=== PATIENT | male | born 2000 | race Caucasian/White ===

== ENCOUNTER 2021-07-24 19:17 | Observation (INO) | payer MEDICAID, SELFPAY ==
[2021-07-24 19:32] VITALS: BP 159/83; PULSE 128; RESP 22; TEMP 37.3; O2SAT 97; BMI 38.6
--- NOTE | 2021-07-24 20:29 | CTR_ITS ---
PROCEDURE INFORMATION: Exam: CT Abdomen And Pelvis With Contrast Exam date and time: 07/24/2021 8:29 PM Age: 21 years old Clinical indication: Abdominal pain; Localized; Right lower quadrant (rlq) TECHNIQUE: Imaging protocol: Computed tomography of the abdomen and pelvis with contrast. Radiation optimization: All CT scans at this facility use at least one of these dose optimization techniques: automated exposure control; mA and/or kV adjustment per patient size (includes targeted exams where dose is matched to clinical indication); or iterative reconstruction. Contrast material: OMNI 300; Contrast volume: 95 ml; Contrast route: INTRAVENOUS (IV); COMPARISON: No relevant prior studies available. RADIATION DOSE METRICS: Total DLP (mGy-cm): 1928.3 FINDINGS: Liver: Normal. No mass. Gallbladder and bile ducts: Normal. No calcified stones. No ductal dilation. Pancreas: Normal. No ductal dilation. Spleen: Normal. No splenomegaly. Adrenal glands: Normal. No mass. Kidneys and ureters: Normal. No hydronephrosis. Stomach and bowel: Unremarkable. No obstruction. No mucosal thickening. Appendix: Appendix dilated to 15 mm with surrounding edema consistent with acute appendicitis. Intraperitoneal space: Unremarkable. No free air. No significant fluid collection. Vasculature: Unremarkable. No abdominal aortic aneurysm. Lymph nodes: Unremarkable. No enlarged lymph nodes. Urinary bladder: Unremarkable as visualized. Reproductive: Unremarkable as visualized. Bones/joints: Unremarkable. No acute fracture. Soft tissues: Unremarkable. CT/CT abdomen pelvis w con* [id number] IMPRESSION: Acute appendicitis, negative for abscess Radiation Dose CTDIVOL = (mGy): DLP = 1928.3 (mGy-cm)
[2021-07-24 21:33] LABS: Basophils % 0.2 %; Hematocrit 49.2 % (42.0-52.0); Hemoglobin 16.8 g/dL (11.7-16.6); Lymphocytes # 1.2 10^3/uL (1.5-6.5); Lymphocytes % 5.9 %; Mean Corpuscular HGB Conc 34.1 g/dL (30.0-36.0); Mean Corpuscular Hemoglobin 30.7 pg (28.0-34.0); Mean Corpuscular Volume 89.9 fl (80-94); Mean Platelet Volume 10.6 fL (7.4-10.4); Monocytes # 1.3 10^3/uL (0.2-0.9); Monocytes % 6.5 %; Neutrophils # 17.01 10^3/uL (1.8-8.0); Nucleated Red Blood Cells % 0 %; Platelet Count 286 10^3/cmm (130-400); Red Blood Count 5.47 10^6/uL (4.1-5.3); Red Cell Distribution Width 12.7 % (12.1-15.1); White Blood Count 19.6 10^3/uL (4.5-13.0)
--- NOTE | 2021-07-24 21:37 | W.ED.ABDPA2 ---
HPI - Abdominal Pain General: Chief Complaint: Abdominal Pain Stated Complaint: ABD Pain N\V Time Seen by Provider: 07/24/21 21:25 Source: patient Mode of arrival: ambulatory Limitations: no limitations History of Present Illness: HPI narrative: 21-year-old male states been having right lower quadrant abdominal pain since last night. States it is worsened throughout the day its much worse with movement improved with rest states pain is currently 6 out of 10 he did have vomiting last night denies any vomiting today denies any pain in his testicle denies any dysuria. MD elicited complaint: abdominal pain Associated Symptoms: Denies chills, dysuria and fever(s) Review of Systems Const: Denies: fever(s), chills, body aches or change in appetite Eyes: Denies: blurry vision or eye discomfort ENMT: Denies: throat pain or dental pain Card: Denies: chest pain Resp: Denies: dyspnea GI: Reports: abdominal pain : Denies: dysuria Musc: Denies: neck pain or back pain Skin/Breast: Denies: rash Neuro: Denies: headache(s) Psych: Denies: depression Ashutosh/Lymph: Denies: easy bruising All/Imm: Denies: urticaria Physical Exam Const: COMMON NORMALS: no acute distress, patient oriented x3 and healthy appearing HENMT: COMMON NORMALS: normocephalic and atraumatic HEAD & SCALP: normocephalic and atraumatic Eye: COMMON NORMALS: Equal, round and reactive pupils present and EOMs intact bilaterally PUPIL: Yes Equal, round and reactive pupils present Neck/C-Spine: COMMON NORMALS: full ROM and supple Chest: COMMONS NORMALS: normal inspection of the chest and normal palpation of entire chest wall Resp: COMMON NORMALS: normal respiratory effort, No retractions, No use of accessory muscles and clear to auscultation bilaterally AUSCULTATION: clear to auscultation bilaterally Cardio: COMMON NORMALS: regular rate, regular rhythm and No murmurs present (Cardio) RATE: regular rate RHYTHM: regular rhythm GI: COMMON NORMALS: Normal to inspection, nondistended, normoactive bowel sounds present, Soft to palpation and no masses PALPATION: Yes Soft to palpation and Yes Tenderness to palpation present (GI) Details: RLQ Extremity: COMMON NORMALS: normal to inspection and full ROM Neuro: COMMON NORMALS: patient oriented x3, moves all extremities and no focal motor deficits Psych: COMMON NORMALS: mental status grossly normal, Normal thought process present and cooperative THOUGHT PROCESS: Normal thought process present Skin: COMMON NORMALS: no rashes or lesions noted and no wounds GENERAL SKIN EXAM: no rashes or lesions noted Course Vital Signs: Vital signs: Vital Signs Temperature 99.2 F 07/24/21 19:32 Pulse Rate 128 H 07/24/21 19:32 Respiratory Rate 22 H 07/24/21 19:32 Blood Pressure 159/83 07/24/21 19:32 Pulse Oximetry 97 07/24/21 19:32 MDM - Abdominal Pain MDM Narrative: Medical decision making narrative: Patient presents here with acute appendicitis spoke to Dr. Zapata will admit at this time start on IV antibiotics patient's pain here is controlled. Lab Data: Labs: Lab Results 07/24/21 07/24/21 21:25 21:25 WBC 19.6 10^3/uL H 10 ^3/uL (4.5-13.0) RBC 5.47 10^6/uL H 10 ^6/uL (4.1-5.3) Hgb 16.8 g/dL H g/dL (11.7-16.6) Hct 49.2 % % (42.0-52.0) MCV 89.9 fl fl (80-94) MCH 30.7 pg pg (28.0-34.0) MCHC 34.1 g/dL g/dL (30.0-36.0) RDW 12.7 % % (12.1-15.1) Plt Count 286 10^3/cmm 10^3 /cmm (130-400) MPV 10.6 fL H fL (7.4-10.4) Neut % (Auto) 87.0 % % Lymph % (Auto) 5.9 % % Crowley % (Auto) 6.5 % % Eos % (Auto) 0.0 % % Baso % (Auto) 0.2 % % Neut # (Auto) 17.01 10^3/uL H 1 0^3/uL (1.8-8.0) Lymph # (Auto) 1.2 10^3/uL L 10^ 3/uL (1.5-6.5) Crowley # (Auto) 1.3 10^3/uL H 10^ 3/uL (0.2-0.9) Eos # (Auto) 0.0 10^3/uL 10^3/ uL (0.0-0.8) Baso # (Auto) 0.0 10^3/uL 10^3/ uL (0.0-0.1) Nucleated RBC % (a uto) 0 % % Nucleated RBCs # 0.0 /100WBC /100W BC Sodium 137 mmol/L mmol/L (136-145) Potassium 3.7 mmol/L mmol/L (3.5-5.1) Chloride 99 mmol/L mmol/L (98-107) Carbon Dioxide 23 mmol/L mmol/L (22-29) Anion Gap 18.7 (5-19) BUN 7 mg/dL mg/dL (6-20) Creatinine 0.6 mg/dL L mg/dL (0.7-1.2) GFR Calculation 171.8 mL/min H mL /min (90-130) Glucose 113 mg/dL mg/dL (65-115) Calculated Osmolal ity 283 mOsm/kg L mOs m/kg (285-295) Calcium 9.3 mg/dL mg/dL (8.5-10.5) Total Bilirubin 0.8 mg/dL mg/dL (0.15-1.2) AST 11 U/L U/L (0-40) ALT 15 U/L U/L (0-41) Alkaline Phosphata se 59 IU/L IU/L (40-130) Total Protein 7.8 g/dL g/dL (6.6-8.7) Albumin 4.9 g/dL g/dL (3.5-5.2) Globulin 2.9 g/dL g/dL (1.3-4.6) Lipase 11 U/L L U/L (13-60) Imaging Data ^: CT Abd/Pel: Attestation: I personally reviewed and interpreted this imaging study as follows: Radiologist's impression: [address] [place] [address] [place] [address] CT Scan Report Signed with Teri Patient: Rickie Vasquez Unit #: [id number] : [id number] Age/Sex: 21 / M ADM Date: 07/24/21 Loc: ER Room/Bed: Attending Dr: Ordering Provider/Ordering MD: Odalys Gonsalez MD Date of Service: 07/24/21 Procedure(s): CT abdomen pelvis w con* [id number] Accession Number(s): [id number] Report Number: [id number]/CT abdomen pelvis w con* [id number] THIS REPORT CONTAINS FINDINGS THAT MAY BE CRITICAL TO PATIENT CARE. The findings were verbally communicated via telephone conference with ODALYS GONSALEZ at 10:30 PM GENERAL SERVICE OFFICER on 07/24/2021. The findings were acknowledged and understood. Radiation Dose CTDIVOL = (mGy): DLP = 1928.3 (mGy-cm) Addendum Dictated By: Patrick Tejada MD Addendum Signed By: Patrick Tejada MD Signed Date/Time: 2231 Addendum Cosigned By: PROCEDURE INFORMATION: Exam: CT Abdomen And Pelvis With Contrast Exam date and time: 07/24/2021 8:29 PM Age: 21 years old Clinical indication: Abdominal pain; Localized; Right lower quadrant (rlq) TECHNIQUE: Imaging protocol: Computed tomography of the abdomen and pelvis with contrast. Radiation optimization: All CT scans at this facility use at least one of these dose optimization techniques: automated exposure control; mA and/or kV adjustment per patient size (includes targeted exams where dose is matched to clinical indication); or iterative reconstruction. Contrast material: OMNI 300; Contrast volume: 95 ml; Contrast route: INTRAVENOUS (IV); COMPARISON: No relevant prior studies available. RADIATION DOSE METRICS: Total DLP (mGy-cm): 1928.3 FINDINGS: Liver: Normal. No mass. Gallbladder and bile ducts: Normal. No calcified stones. No ductal dilation. Pancreas: Normal. No ductal dilation. Spleen: Normal. No splenomegaly. Adrenal glands: Normal. No mass. Kidneys and ureters: Normal. No hydronephrosis. Stomach and bowel: Unremarkable. No obstruction. No mucosal thickening. Appendix: Appendix dilated to 15 mm with surrounding edema consistent with acute appendicitis. Intraperitoneal space: Unremarkable. No free air. No significant fluid collection. Vasculature: Unremarkable. No abdominal aortic aneurysm. Lymph nodes: Unremarkable. No enlarged lymph nodes. Urinary bladder: Unremarkable as visualized. Reproductive: Unremarkable as visualized. Bones/joints: Unremarkable. No acute fracture. Soft tissues: Unremarkable. CT/CT abdomen pelvis w con* [id number] IMPRESSION: Acute appendicitis, negative for abscess Radiation Dose CTDIVOL = (mGy): DLP = 1928.3 (mGy-cm) Dictated By: Patrick Tejada MD Signed By: Patrick Tejada MD Signed Date/Time: 07/24/212228 DD/ 28 Discharge Plan Discharge Patient Disposition: Admitted As Inpatient Clinical Impression: Acute appendicitis Qualifiers: Acute appendicitis type: unspecified acute appendicitis type Qualified Code(s): K35.80 - Unspecified acute appendicitis Condition: Stable Coding Level of Care Code ED Finishing Pan Operator for g Fwd Exam Comprehensive
[2021-07-24 21:47] LABS: Alanine Aminotransferase 15 U/L (0-41); Albumin Level 4.9 g/dL (3.5-5.2); Alkaline Phosphatase 59 IU/L (40-130); Anion Gap 18.7 (5-19); Aspartate Amino Transferase 11 U/L (0-40); Blood Urea Nitrogen 7 mg/dL (6-20); Calcium 9.3 mg/dL (8.5-10.5); Carbon Dioxide 23 mmol/L (22-29); Chloride 99 mmol/L (98-107); Globulin 2.9 g/dL (1.3-4.6); Glomerular Filtration Rate 171.8 mL/min (90-130); Glucose 113 mg/dL (65-115); Lipase 11 U/L (13-60); Osmolality Calculated 283 mOsm/kg (285-295); Potassium 3.7 mmol/L (3.5-5.1); Sodium 137 mmol/L (136-145); Total Bilirubin 0.8 mg/dL (0.15-1.2); Total Protein 7.8 g/dL (6.6-8.7)
[2021-07-24] MEDS: iohexol 300 mg/mL 100 mL Btl IV (21:47)
[2021-07-24] MEDS: sodium chloride 0.9% 1,000 ML 999 ML IV ×2 (22:04→22:05)
[2021-07-24] MEDS: ondansetron 2 mg/ML SDV 2 mL 4 MG IVP (22:04)
[2021-07-24] MEDS: morphine 4 mg/mL SDV 1 mL IVP (22:04)
[2021-07-25] VITALS (20 sets, daily range): BP systolic 93–145; BP diastolic 50–86; PULSE 97–134; RESP 16–32; TEMP 36.7–39.7; O2SAT 91–98; BMI 39.9
[2021-07-25] MEDS: piperacillin-tazobactam 3.375 GM in sodium chloride 0.9% (plus) 50 ML IV ×3 (00:15→20:06)
[2021-07-25] MEDS: HYDROmorphone 1 mg/mL INJ 1 mL IVP (00:16)
[2021-07-25] MEDS: sodium chloride 0.9% 1,000 ML 100 ML IV ×2 (02:43→10:31)
--- NOTE | 2021-07-25 06:24 | P.HP_ITS ---
Providers/Chief Complaint Admitting Physician: Adalid Zapata MD Chief Complaint: ABD Pain N\V History of Present Illness Rickie Vasquez is a 21 year old male who developed some vague epigastric discomfort about 36 hours ago. He says yesterday he had some nausea and vomited once. There was no evidence of hematemesis. He ran a low-grade fever at ninety-nine point something. He has not had any change in his bowel habits. He did lose his a ppetite yesterday and only had some sips of fluids. He was seen in a medical clinic in [place] and was instructed to come to the emergency department where a CAT scan showed evidence consistent with acute appendicitis. The patient says this morning the pain seems to be more localized in the right lower quadrant, but he otherwise is feeling about the same. Review of Systems General: Reports: 10 or more systems reviewed and unremarkable except in HPI and below Const: Reports: fever(s) GI: Reports: abdominal pain, nausea and vomiting; Denies: hematemesis or diarrhea Medications/Allergies Home Medications Medication Instructions Recorded Confirmed Last Taken Type lisinopril 20 mg tablet 20 mg PO DAILY 07/24/21 07/25/21 07/24/21 09:00 History Allergies Allergy/AdvReac Type Severity Reaction Status Date / Time No Known Allergies Allergy Unverified 07/24/21 17:47 PFSH Acute PFSH: Medical History (Updated 07/25/21 @ 06:41 by Adalid Zapata MD) Hypertension Surgical History (Updated 07/25/21 @ 06:41 by Adalid Zapata MD) History of oral surgery teeth Social History (Updated 07/25/21 @ 06:41 by Adalid Zapata MD) Smoking and tobacco status: never smoked Alcohol intake: never 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 He is not in any distress. The pupils are equal. No neck masses are palpated. The chest is clear anteriorly. The heart is regular. The abdomen reveals hypoactive bowel sounds and is mildly to moderately obese but is soft. Rovsing's sign is positive. The patient's maximum point of tenderness is at McBurney's point or slightly above in the right lower quadrant. No obvious masses are palpated. The extremities reveal no edema. Neurologically the patient is grossly intact. Data : 07/24/21 21:25 07/24/21 21:25 CT Abd/Pel: Radiologist's impression: CT abdomen/pelvis 07/24/2021 IMPRESSION: Acute appendicitis, negative for abscess A&P Assessment and plan (1) Acute appendicitis: CT reviewed. The patient's history and exam are consistent with acute appendicitis. I discussed appendicitis and appendectomy's with the patient (and his mother by phone) this morning. We also discussed conservative management. Surgical risks of bleeding, infection, internal organ injury, etc. were all gone over. The patient seems understand and would like to proceed with an appendectomy. The patient has been n.p.o. since yesterday. I will make arrangements for a laparoscopic or possibly open appendectomy today. Status: Acute Qualifiers: Acute appendicitis type: unspecified acute appendicitis type Qualified Code(s): K35.80 - Unspecified acute appendicitis Attestations Medical Necessity Statement*: Based on my medical assessment, presenting symptoms and consideration of the scope of surgical therapy, I expect this patient will require treatment in the hospital for a period of time spanning less than 2 midnights, and is therefore being placed in observation status. 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
[2021-07-25] MEDS: sodium chloride 0.9% 1,000 ML 30 ML IV (07:34)
[2021-07-25] MEDS: acetaminophen 1,000 MG/100 ML PIGGYBACK 400 MG IV (07:34)
[2021-07-25] MEDS: metroNIDAZOLE IV 500 MG/100 ML PREMIX 100 MG IV (07:38)
--- NOTE | 2021-07-25 09:47 | P.OP_ITS ---
Operative Report Date of procedure: July 25, 2021 Pre-op Diagnosis: Acute appendicitis. Post-op diagnosis: same Procedure Done: Laparoscopic appendectomy. Specimens removed/disposition: Appendix. Surgeon: Adalid Zapata Anesthesia: General Estimated blood loss (mL): 5 Complications: None. Condition: stable Disposition: PACU Procedure: The patient was brought to the Operating Room and was placed in a supine position on the operating room table. General endotracheal anesthesia was induced. The abdomen was prepped and draped in a sterile fashion. A small vertical incision was carried out in the superior aspect of the umbilicus. Blunt dissection was carried out down to the fascia, which was grasped with a Bandar clamp. A stay suture of 0 Vicryl was placed on either side of the midline and the midline fascia was incised. The underlying peritoneum was opened bluntly and the Holly port was placed directly into the peritoneal cavity and was held in place with the inflatable balloon. The peritoneal cavity was insufflated with carbon dioxide. The laparoscope was used to inspect the peritoneal cavity. The patient had a small amount of exudate in the right lower quadrant against the pelvic sidewall. No other gross abnormalities were initially noted. Two 5-millimeter ports were placed in the left lower quadrant under direct vision. The patient was tilted in a Trendelenburg position and slightly to the left side. A laparoscopic Adonis was used to elevate the cecum and the appendix was identified. The appendix was inflamed and had exudate/inflammatory peel on its surface, but no evidence of gross perforation was seen. The appendix was freed using blunt dissection and was then elevated. The edematous mesoappendix was divided using cautery to maintain hemostasis at the base of the appendix. The base of the appendix appeared healthy and was divided using an endoscopic stapler. The appendix was removed from the peritoneal cavity after being placed in a laparoscopic bag. The right lower quadrant and pelvis were irrigated. The staple line on the cecum was identified and appeared to be in good condition. The Holly port was removed from the umbilical site and the stay sutures of Vicryl were tied to each other at the umbilicus. An additional [id number] suture of 0 Vicryl was placed, closing the fascial defect so that it was airtight. A final round of irrigation was carried out in the right lower quadrant and the pelvis. No ongoing problems were seen. The remaining ports were removed from the abdominal wall as the pneumoperitoneum was evacuated. All skin incisions were closed using inverted interrupted sutures of 4-0 Vicryl. Benzoin and Steri-Strips were placed over the incisions and Band- Aids followed. The patient was taken to the Recovery Room in stable condition postoperatively.
--- NOTE | 2021-07-25 10:18 | SUR.PHASEI ---
PT AWAKES TO VOICE , DENIES PAIN , IV TO LT AC PATENT PER DR MCDONNELL, MONITOR ST RESP 22-24 NON LABORED, PT MOVES SELF UP IN BED VSS. IV AT FAST RATE,ORDERS RECIEVED BY DR GOEL TO INFUSE THE REMAINING 500ML NOW IN PACU.
--- NOTE | 2021-07-25 10:48 | P.ANESASSM_ITS ---
Pre-Anesthetic Assessment Pre-Anesthetic Assessment: Height/Weight: Height 1.83 m Weight 133.402 kg Temp Pulse Resp BP Pulse Ox 100.9 F H 117 H 28 H 105/53 95 07/25/21 10:35 07/25/21 10:35 07/25/21 10:35 07/25/21 10:35 07/25/21 10:35 Preop Diagnosis: Acute appendicitis. Proposed Procedure: Operation Date: 07/25/21 08:15 Proposed Procedures p Laparoscopic Appendectomy(Not Applicable) - Adalid Zapata MD Was Beta Nyla taken within 24 hours: N/A Was Clonidine taken within 24 hours: N/A Last intake: Intake Last Liquid Date 07/24/21 Last Liquid Time 07:00 Last Solid Date 07/23/21 Last Solid Time 07:00 Social: Social History: No alcohol and No tobacco Exam: Pre-Anes Outpt Exam: alert, oriented x 3, clear to auscultation bilaterally and regular rate & rhythm Airway: Submandibular: WNL Cervical ROM: WNL MP: 2 Dentition: Full CV/HEM: CV/HEM: HTN Metabolic: Metabolic: Morbid obesity Anesthetic Plan: ASA status: 2 Anesthesia: General Risk of > 500 ml blood loss (7ml/kg in children): No Meds/Allergies Current Medications: Current Medications Generic Name Dose Route Start Last Admin Trade Name Freq PRN Reason Stop Dose Admin Sodium Chloride 1,000 mls @ 100 m ls/hr 07/25/21 02:17 07/25/21 02:43 Sodium Chloride 0.9% IV 100 mls/hr .Q10H GEOVANNA Administration Sodium Chloride 1,000 mls @ 30 ml s/hr 07/25/21 07:30 07/25/21 10:31 Sodium Chloride 0.9% IV 07/26/21 07:29 100 mls/hr .Q24H GEOVANNA Administration PFSH Anesthesia PFSH: Medical History (Updated 07/25/21 @ 06:41 by Adalid Zapata MD) Hypertension Surgical History (Updated 07/25/21 @ 06:41 by Adalid Zapata MD) History of oral surgery teeth Social History (Updated 07/25/21 @ 06:41 by Adalid Zapata MD) Smoking and tobacco status: never smoked Alcohol intake: never 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[employer], 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 Data Anesthesia CBC & Chem 7: 12/02/21 21:25 07/24/21 21:25 Other Labs: Laboratory Results - last 48 hr 07/24/21 07/24/21 21:25 21:25 WBC 19.6 H RBC 5.47 H Hgb 16.8 H Hct 49.2 MCV 89.9 MCH 30.7 MCHC 34.1 RDW 12.7 Plt Count 286 MPV 10.6 H Neut % (Auto) 87.0 Lymph % (Auto) 5.9 Wilson % (Auto) 6.5 Eos % (Auto) 0.0 Baso % (Auto) 0.2 Neut # (Auto) 17.01 H Lymph # (Auto) 1.2 L Wilson # (Auto) 1.3 H Eos # (Auto) 0.0 Baso # (Auto) 0.0 Nucleated RBC % (auto) 0 Nucleated RBCs # 0.0 Sodium 137 Potassium 3.7 Chloride 99 Carbon Dioxide 23 Anion Gap 18.7 BUN 7 Creatinine 0.6 L GFR Calculation 171.8 H Glucose 113 Calculated Osmolality 283 L Calcium 9.3 Total Bilirubin 0.8 AST 11 ALT 15 Alkaline Phosphatase 59 Total Protein 7.8 Albumin 4.9 Globulin 2.9 Lipase 11 L Cardiac Studies: No Data to Display
--- NOTE | 2021-07-25 10:49 | ANE.PACU2 ---
Inpatient post-anesthesia follow up: Airway intact: Yes Vital signs: Temperature 100.9 F Pulse Rate 117 Respiratory Rate 28 Blood Pressure 105/53 Pulse Oximetry 95 Oxygen Delivery Me thod Nasal Cannula Oxygen Flow Rate 3 Fraction of Inspir ed Oxygen Hydration adequate: Yes Nausea and vomiting: No Pain level: 3 Mental status: Baseline
[2021-07-25] MEDS: famotidine 20 mg/2 mL INJ IVP ×2 (11:42→22:10)
[2021-07-25] MEDS: D5-NS 0.45% + KCL 20 mEq 20 MEQ/1,000 ML BAG 100 MEQ IV ×2 (11:42→23:52)
[2021-07-25] MEDS: heparin 5,000 unit/mL INJ 1 mL 5000 UNIT SUBCUT ×2 (11:42→22:10)
[2021-07-25] MEDS: HYDROcodone-acetaminophen 5-325 mg Tablet PO ×3 (11:42→21:33)
[2021-07-25] MEDS: ketorolac 30 mg/mL INJ IVP (14:16)
[2021-07-25] MEDS: acetaminophen 325 mg Tablet PO (16:09)
--- NOTE | 2021-07-25 20:25 | PC.NURSE ---
i reported high reps 20 and high pulse 112 to nurse
--- NOTE | 2021-07-25 23:52 | PC.NURSE ---
i reported high pulse 113 to nurse
[2021-07-26] MEDS: piperacillin-tazobactam 3.375 GM in sodium chloride 0.9% (plus) 50 ML IV (04:35)
[2021-07-26 04:39] VITALS: BP 102/60; PULSE 110; RESP 18; TEMP 36.7; O2SAT 94
--- NOTE | 2021-07-26 04:40 | PC.NURSE ---
i reported high pulse 110 to nurse
[2021-07-26 06:27] LABS: Basophils # 0.1 10^3/uL (0.0-0.1); Basophils % 0.4 %; Eosinophils % 0.1 %; Hematocrit 42.8 % (42.0-52.0); Hemoglobin 13.2 g/dL (11.7-16.6); Lymphocytes # 0.7 10^3/uL (1.5-6.5); Lymphocytes % 5.2 %; Mean Corpuscular HGB Conc 30.8 g/dL (30.0-36.0); Mean Corpuscular Hemoglobin 29.5 pg (28.0-34.0); Mean Corpuscular Volume 95.7 fl (80-94); Mean Platelet Volume 12.1 fL (7.4-10.4); Monocytes # 0.6 10^3/uL (0.2-0.9); Monocytes % 4.4 %; Neutrophils # 12.23 10^3/uL (1.8-8.0); Neutrophils % 89.5 %; Nucleated Red Blood Cells % 0 %; Platelet Count 167 10^3/cmm (130-400); Red Blood Count 4.47 10^6/uL (4.1-5.3); Red Cell Distribution Width 13.6 % (12.1-15.1); White Blood Count 13.7 10^3/uL (4.5-13.0)
[2021-07-26 07:01] LABS: Anion Gap 16.2 (5-19); Blood Urea Nitrogen 9 mg/dL (6-20); Calcium 8.2 mg/dL (8.5-10.5); Carbon Dioxide 23 mmol/L (22-29); Chloride 104 mmol/L (98-107); Glomerular Filtration Rate 107.6 mL/min (90-130); Glucose 84 mg/dL (65-115); Osmolality Calculated 286 mOsm/kg (285-295); Potassium 4.2 mmol/L (3.5-5.1); Sodium 139 mmol/L (136-145)
[2021-07-26 07:07] VITALS: BP 107/63; PULSE 115; RESP 16; TEMP 37.5; O2SAT 91
[2021-07-26] MEDS: lisinopril 20 mg Tablet PO (08:21)
--- NOTE | 2021-07-26 09:12 | P.DS_ITS ---
Discharge Providers Date of Admission: 07/24/21 22:33 Date of Discharge: July 26, 2021 Attending Provider at Admission: Adalid Zapata MD Attending Provider at Discharge: Adalid Zapata MD Diagnoses at Discharge Discharge Diagnosis (1) Acute appendicitis: Status: Acute Qualifiers: Acute appendicitis type: unspecified acute appendicitis type Qualified Code(s): K35.80 - Unspecified acute appendicitis Reason for Visit Reason for Visit: ABD Pain N\V Hospital Course Hospital Course This is a 21-year-old white male who developed abdominal pain 36 hours prior to presenting to the emergency department. A CAT scan showed changes consistent with acute appendicitis. He underwent a laparoscopic appendectomy the same day. No evidence of gross perforation was present but he was kept on broad-spectrum antibiotics. By the following morning he was already feeling much better and was anxious to go home. He had had some fairly persistent tachycardia ever since presenting, but his rhythm was always regular and the monitor showed sinus rhythm. He was obviously well hydrated at the time of discharge and his heart rate was still improving. He indicated that he suspected this was secondary to discomfort and anxiety. His white blood cell count also remained mildly elevated and plans were made to discharge him on an oral antibiotic. His wounds looked good and his abdomen revealed good bowel sounds. He was already passing flatus and tolerating an oral diet. He and his mother were instructed with respect to wound care, activity limitations, diet, follow-up appointments, etc. I will make arrangements for the patient to see me in the office in 7 to 10 days. Physical Exam Narrative: EXAM NARRATIVE: Bowel sounds are present. All laparoscopic incisions look good. He has the expected amount of tenderness. Discharge Data Data Completed and Pending: Completed Studies During Hospitalization Category Date Time Status CT abdomen pelvis w con* [id number] Urge nt Cat Scan 07/24/21 20:29 Completed Pending at discharge Category Date Time Status Pathology: Surgic al [PTH] Routine Pth 07/25/21 10:08 Received Labs from last 24 hours 07/26/21 07/26/21 05:34 05:34 WBC 13.7 H RBC 4.47 Hgb 13.2 Hct 42.8 MCV 95.7 H MCH 29.5 MCHC 30.8 RDW 13.6 Plt Count 167 MPV 12.1 H Neut % (Auto) 89.5 Lymph % (Auto) 5.2 Reeves % (Auto) 4.4 Eos % (Auto) 0.1 Baso % (Auto) 0.4 Neut # (Auto) 12.23 H Lymph # (Auto) 0.7 L Reeves # (Auto) 0.6 Eos # (Auto) 0.0 Baso # (Auto) 0.1 Nucleated RBC % (a uto) 0 Nucleated RBCs # 0.0 Sodium 139 Potassium 4.2 Chloride 104 Carbon Dioxide 23 Anion Gap 16.2 BUN 9 Creatinine 0.9 GFR Calculation 107.6 Glucose 84 Calculated Osmolal ity 286 Calcium 8.2 L Vitals: Last Vital Signs Temp 99.5 F 07/26/21 07:07 Pulse 115 H 07/26/21 07:07 Resp 16 07/26/21 07:07 BP 107/63 07/26/21 07:07 Pulse Ox 91 07/26/21 07:07 Discharge Plan Discharge Patient Disposition: Home Condition: Stable Prescriptions: New hydrocodone-acetaminophen 5-325 mg tablet 1 - 2 tab PO Q5H PRN (Reason: pain) Qty: 30 RF: 0 amoxicillin-pot clavulanate [Augmentin] 875-125 mg tablet 1 tab PO BID Qty: 10 RF: 0 Continued lisinopril 20 mg tablet 20 mg PO DAILY RF: 0 Discharge Orders: Discharge Order (Routine); Ordered 07/26/21 Ordered By: Adalid Zapata Referrals: Adalid Zapata MD [Physician] - 7-10 days (Nursing: Please have the patient / family call Dr. Zapata's office on Wednesday ([phone]) and make an appointment for the patient to be seen in 7-10 days.) Discharge Diet: Advance as tolerated Discharge Activity: Limit activity as instructed Patient Instructions: Appendicitis (GEN), Opioid Safety Activity Restrictions/Additional Instructions: 1. Discharge to home today. 2. Appointment to see Dr. Zapata in 10-14 days as above. 3. Bandaids off later today, leave Steri-Strip(s) on, may shower. 4. Mcdonough 5/325 1-2 tablets by mouth every 5 hours as needed for pain. #30, no refills. 5. Augmentin 875/125 1 tablet by mouth twice daily until gone. #10, no refills. No lifting over 20 pounds, no repetitive bending or twisting, no strenuous pushing / pulling or other heavy activity. Ambulate regularly. May go up and down steps if needed. Discharge Attestations Time Spent in Discharge Care*: less than 30 min Quality Metrics Clinical Quality Measures During this hospital stay, did patient experience: None Coding Level of Care Code Acute g FW [place] note Diagnoses Acute appendicitis K35.80 Acute appendicitis type: unspecified acute appendicitis type
[2021-07-26 10:56] VITALS: BP 107/63; PULSE 115; RESP 16; TEMP 37.5; O2SAT 91
== END 2021-07-26 10:05 | disposition home or self-care (01) ==
LOC: ER 22:53 → MEDSURG 23:30
PROVIDERS: Admitting Provider Surgery; Emergency Provider Emergency Medicine; Visit Provider Surgery
PROC: 0DTJ4ZZ Resection of Appendix, Percutaneous Endoscopic Approach (ICD-10-PCS; CPT 44970; principal; 2021-07-25 08:15)
DX: K35.80 Unspecified acute appendicitis (principal)
CPT/HCPCS: 44970; 36415; 74177; 80048; 80053; 83690; 85025; 88304; 96365; 96372; 96375; 99285; 99291; G0378; J0330; J0690; J1100; J1170; J1200; J1644; J1885; J2270; J2405; J2543; J2704; J2710; J3010; J3490; J7030; Q9967; S0030

== ENCOUNTER 2022-02-06 08:59 | Inpatient (IN) | payer MEDICAID, SELFPAY ==
[2022-02-06] VITALS (35 sets, daily range): BP systolic 109–154; BP diastolic 56–109; PULSE 108–137; RESP 14–45; TEMP 36.6–37.3; O2SAT 89–95; BMI 34.0
--- NOTE | 2022-02-06 09:10 | XR_ITS ---
WS: [id number] Portable AP upright chest, 02/06/2022 Clinical Data: dyspnea/cough Comparison: None. Findings: There is a diffuse patchy opacity throughout the right lung. There is opacity in the left l julian mostly in the left lower lobe. The heart is normal. No nodules, masses or effusions are seen. The re is no pneumothorax. XR/XR chest 1V portable [id number] Impression: Diffuse bilateral patchy opacities more on the right than the left which may re present pneumonia, chronic interstitial change, allergic reaction, unusual infe ctious disease and many other entities.
--- NOTE | 2022-02-06 09:25 | W.ED.SOB ---
HPI - SOB/Dyspnea General: Chief Complaint: Shortness of Breath/Dyspnea Stated Complaint: RESPIRATORY DISTRESS Time Seen by Provider: 02/06/22 09:10 Source: patient Mode of arrival: EMS Limitations: no limitations History of Present Illness: HPI Narrative: 21-year-old male presents emergency room complaining of shortness of breath progressively worsening over the last 4 days (patient states this began Wednesday). He is had a moderately increased production of clear sputum. He has had some low-grade subjective fevers. Patient has a known history of asthma. He states he has previously been vaccinated for COVID but has never actually tested positive to that he is aware of. He denies any diarrhea or anosmia. Has not been around anyone that he knows of that has had COVID. MD elicited complaint: shortness of breath and cough Pertinent past history: asthma Onset (ago): day(s) (5) Timing: constant Severity: severe Exacerbating factors: exertion and coughing Relieving factors: oxygen and rest Known history of: asthma Associated symptoms: Reports chest congestion, cough and fever(s) (Subjective); Deny abdominal pain, chest pain, diaphoresis, dizziness, extremity pain, hemoptysis, lightheadedness, myalgias, nausea, orthopnea, palpitations, paresthesias, polydipsia, polyuria, rash, sense of impending doom, syncope or vomiting Treatment prior to arrival: oxygen Review of Systems Const: Reports: fever(s) (Subjective), chills and malaise; Denies: fatigue or diaphoresis ENMT: Denies: throat pain, ear or mastoid pain, nasal discharge or nasal congestion Card: Denies: chest pain, palpitations, irregular heart rhythm, edema, swelling of feet/ankles, lightheadedness, syncope or orthopnea Resp: Reports: dyspnea, productive cough, wheezing and chest congestion; Denies: hemoptysis GI: Denies: abdominal pain, nausea or vomiting : Denies: flank pain, difficulty urinating, dysuria, urinary frequency or urinary urgency Musc: Denies: extremity pain Skin/Breast: Denies: rash or pruritus Neuro: Denies: dizziness Endo: Denies: polyuria or polydipsia PFSH ED PFSH: Medical History Hypertension Surgical History History of oral surgery teeth Hx of appendectomy Family History Other Hypertension Social History Smoking and tobacco status: current every day smoker Alcohol intake: never Substance/Drug Use: never 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[employer], 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 Physical Exam Const: GENERAL APPEARANCE: cooperative ORIENTATION/CONSCIOUSNESS: Yes awake, Yes oriented to person, Yes oriented to place and Yes oriented to time HENMT: COMMON NORMALS: normocephalic, atraumatic and hearing grossly normal bilaterally HEAD & SCALP: normocephalic and atraumatic Neck/C-Spine: COMMON NORMALS: no lymphadenopathy and no JVD Resp: COMMON NORMALS: No use of accessory muscles AUSCULTATION: crackles and wheezes Cardio: COMMON NORMALS: no JVD, regular rate, regular rhythm and No murmurs present (Cardio) RATE: regular rate RHYTHM: regular rhythm GI: COMMON NORMALS: Soft to palpation and No hepatosplenomegaly present AUSCULTATION: Yes normoactive bowel sounds PALPATION: Yes Soft to palpation, No Tenderness to palpation present (GI), No Guarding due to palpation present (GI) and Yes No hepatosplenomegaly present Extremity: COMMON NORMALS: normal to inspection, capillary refill normal, no clubbing, cyanosis or edema, no calf tenderness and no pedal edema Neuro: SENSORIUM/ORIENTATION: Yes oriented to person, Yes oriented to place and Yes oriented to time Skin: COMMON NORMALS: no rashes or lesions noted GENERAL SKIN EXAM: no rashes or lesions noted Course Vital Signs: Vital signs: Vital Signs Temperature 97.9 F 02/06/22 09:02 Pulse Rate 111 H 02/06/22 13:41 Respiratory Rate 22 H 02/06/22 13:41 Blood Pressure 154/85 02/06/22 09:02 Pulse Oximetry 93 02/06/22 13:41 MDM - SOB/Dyspnea Medical Decision Making Patient has significant acute hypoxia. He is responding to high flow oxygen his respiratory status diminished while in the emergency room he required increasing oxygen support and is on heated high flow at this time. His chest x-ray is very conservative Bensing for COVID pneumonitis however his COVID's PCR was negative. His other labs also are concerning for COVID. Discussed with Dr. Henderson patient admitted to the ICU orders written Medical Records I reviewed the patient's medical records. Lab Data I reviewed the patient's lab results. : 02/06/22 09:35 02/06/22 09:38 Labs/Radiology: Radiology Impressions Chest X-Ray 02/06/22 09:10 Impression: Diffuse bilateral patchy opacities more on the right than the left which may represent pneumonia, chronic interstitial change, allergic reaction, unusual infectious disease and many other entities. Chest CTA 02/06/22 11:22 IMPRESSION: 1. No pulmonary artery embolism identified. 2. Numerous mildly prominent mediastinal lymph nodes felt to be reactive. 3. Small bilateral pleural effusions with compressive atelectasis. 4. Bilateral irregular areas of ground-glass opacity, lung consolidation, and interstitial thickening. Findings can be seen with organizing pneumonia, hypersensitivity pneumonitis, and acute lung injury. Imaging features can be seen with COVID-19 pneumonia, though are nonspecific and can occur with a variety of infectious and noninfectious processes. (Reference: Endy) 5. Pulmonary vascular congestion. 6. Pulmonary interstitial edema. REFERENCES: Endy Sandoval, et al., Radiological Society of [place] Expert Consensus Statement on Reporting Chest CT Findings Related to COVID-19. Endorsed by the Society of Thoracic Radiology, the [place], and RSNA. Published November 15, 2019. Laboratory Results WBC 22.0 10^3/uL (4.5-13.0) H 02/06/22 09:35 RBC 5.51 10^6/uL (4.1-5.3) H 02/06/22 09:35 Hgb 16.6 g/dL (11.7-16.6) 02/06/22 09:35 Hct 48.6 % (42.0-52.0) 02/06/22 09:35 MCV 88.2 fl (80-94) 02/06/22 09:35 MCH 30.1 pg (28.0-34.0) 02/06/22 09:35 MCHC 34.2 g/dL (30.0-36.0) 02/06/22 09:35 RDW 13.1 % (12.1-15.1) 02/06/22 09:35 Plt Count 270 10^3/cmm (130-400) 02/06/22 09:35 MPV 11.8 fL (7.4-10.4) H 02/06/22 09:35 Neut % (Auto) 85.3 % 02/06/22 09:35 Lymph % (Auto) 6.2 % 02/06/22 09:35 Luna % (Auto) 5.7 % 02/06/22 09:35 Eos % (Auto) 2.2 % 02/06/22 09:35 Baso % (Auto) 0.1 % 02/06/22 09:35 Neut # (Auto) 18.82 10^3/uL (1.8-8.0) H 02/06/22 09:35 Lymph # (Auto) 1.4 10^3/uL (1.5-6.5) L 02/06/22 09:35 Luna # (Auto) 1.3 10^3/uL (0.2-0.9) H 02/06/22 09:35 Eos # (Auto) 0.5 10^3/uL (0.0-0.8) 02/06/22 09:35 Baso # (Auto) 0.0 10^3/uL (0.0-0.1) 02/06/22 09:35 Nucleated RBC % (auto) 0 % 02/06/22 09:35 Nucleated RBCs # 0.0 /100WBC 02/06/22 09:35 D-Dimer 5.74 ug/mIFEU (0-0.59) H 02/06/22 10:40 Specimen Type Arterial 02/06/22 09:27 Sample Site Brachial, left 02/06/22 09:27 ABG pH 7.47 (7.35-7.45) H 02/06/22 09:27 ABG pCO2 30.0 mmHg (35-45) L 02/06/22 09:27 ABG pO2 67.8 mmHg (80.0-100.0) L 02/06/22 09:27 ABG HCO3 21.8 mmol/L (22-26) L 02/06/22 09:27 ABG O2 Saturation 95.0 02/06/22 09:27 ABG Base Excess -0.5 mmol/L (-2.0-2.0) 02/06/22 09:27 Ever Test Pos 02/06/22 09:27 A-a O2 Gradient 5.8 mmHg (5-10) 02/06/22 09:27 Hematocrit 52.8 % (42-52) H 02/06/22 09:27 Hgb O2 Saturation 93.8 % (95-100) L 02/06/22 09:27 Carboxyhemoglobin 1.0 %THgb (0.4-20.1) 02/06/22 09:27 Methemoglobin 0.2 % (0.4-1.5) L 02/06/22 09:27 Total Hemoglobin 17.2 g/dL (14-18) 02/06/22 09:27 Sodium 138.0 mmol/L (131-143) 02/06/22 09:27 Potassium 3.7 mmol/L (3.5-5.0) 02/06/22 09:27 Glucose 96.0 mg/dL (70-115) 02/06/22 09:27 Ionized Calcium 1.1 mmol/L (1.1-1.4) 02/06/22 09:27 O2 Delivery Device Nc 02/06/22 09:27 O2 Liters/Min 4.0 % 02/06/22 09:27 Financial Intern ID Cak 02/06/22 09:27 Sodium 138 mmol/L (136-145) 02/06/22 09:38 Potassium 3.8 mmol/L (3.5-5.1) 02/06/22 09:38 Chloride 102 mmol/L (98-107) 02/06/22 09:38 Carbon Dioxide 23 mmol/L (22-29) 02/06/22 09:38 Anion Gap 16.8 (5-19) 02/06/22 09:38 BUN 9 mg/dL (6-20) 02/06/22 09:38 Creatinine 0.8 mg/dL (0.7-1.2) 02/06/22 09:38 GFR Calculation 123.2 mL/min (90-130) 02/06/22 09:38 Glucose 98 mg/dL (65-115) 02/06/22 09:38 Calculated Osmolality 285 mOsm/kg (285-295) 02/06/22 09:38 Calcium 8.7 mg/dL (8.5-10.5) 02/06/22 09:38 Magnesium 1.7 mg/dL (1.7-2.3) 02/06/22 09:38 Total Bilirubin 1.1 mg/dL (0.15-1.2) 02/06/22 09:38 AST 11 U/L (0-40) 02/06/22 09:38 ALT 8 U/L (0-41) 02/06/22 09:38 Alkaline Phosphatase 40 IU/L (40-130) 02/06/22 09:38 Troponin T Gen 5 ng/L 12 ng/L (0-15) 02/06/22 09:38 C-Reactive Protein 148.7 mg/L (0.0-4.9) H 02/06/22 09:38 NT-Pro-B Natriuret Pep 81 pg/mL (0-125) 02/06/22 09:38 Total Protein 5.9 g/dL (6.6-8.7) L 02/06/22 09:38 Albumin 3.3 g/dL (3.5-5.2) L 02/06/22 09:38 Globulin 2.6 g/dL (1.3-4.6) 02/06/22 09:38 Procalcitonin 0.13 ng/mL (0-0.5) 02/06/22 09:38 TSH 2.27 uIU/mL (0.27-4.20) 02/06/22 09:38 Urine Color Dark yellow (Yellow) 02/06/22 10:55 Urine Appearance Clear (CLEAR) 02/06/22 10:55 Urine pH 5 (5-7) 02/06/22 10:55 Ur Specific [place] 1.020 (1.005-1.030) 02/06/22 10:55 Urine Protein Neg (Negative) 02/06/22 10:55 Urine Glucose (UA) Norm (Normal) 02/06/22 10:55 Urine Ketones 1+ (Negative) H 02/06/22 10:55 Urine Blood Neg (Negative) 02/06/22 10:55 Urine Nitrate Negative (Negative) 02/06/22 10:55 Urine Bilirubin Neg (Negative) 02/06/22 10:55 Prot Sulfosalicylic Acd Negative (Negative) 02/06/22 10:55 Urine Urobilinogen 1 mg/dL (Negative) H 02/06/22 10:55 Ur Leukocyte Esterase Negative (Negative) 02/06/22 10:55 Urine RBC 0-4 /hpf (0-2) H 02/06/22 10:55 Urine WBC 0-4 /hpf (0-5) H 02/06/22 10:55 Ur Squamous Epith Cells 0-4 /hpf (0-5) H 02/06/22 10:55 Amorphous Sediment Not Reportable 02/06/22 10:55 Urine Bacteria None /hpf (NONE) 02/06/22 10:55 Coronavirus 229E (PCR) Not detected (NOT DETECT) 02/06/22 09:38 HIV 1&2 Ab & HIV 1 Ag Non-reactive (Non-Reactiv) 02/06/22 09:38 HIV 1&2 Antibody Non-reactive (Non-Reactiv) 02/06/22 09:38 SARS-CoV-2 (PCR) Not detected (NOT DETECT) 02/06/22 09:38 Discharge Plan Discharge Patient Disposition: Admitted As Inpatient Admit Provider: Chago Howe Clinical Impression: Pneumonia, Elevated d-dimer Condition: Stable Coding Level of Care Code ED Supervisor Cigarette Making Department for [facility] Fwd Exam Comprehensive
--- NOTE | 2022-02-06 09:30 | PC.PHAR ---
pt states he takes care of his own medications-pt states not been taking lisinopril 20mg daily for about a month-pt states he didnt think he needed it any longer-[facility] states they last filled aug 2021 90d/s
[2022-02-06 09:43] LABS: ABG PH Result 7.47 (7.35-7.45); Alveolar-Arterial Oxygen Gradi 5.8 mmHg (5-10); Arterial Blood Gas Hematocrit 52.8 % (42-52); Base Excess ABG -0.5 mmol/L (-2.0-2.0); Blood Gas Allen Test Pos; Blood Gas Operator Identificat CAK; Blood Gas Sample Site Brachial, left; Blood Gas Sample Type Arterial; HCO3 ABG 21.8 mmol/L (22-26); HGB O2 Sat 93.8 % (95-100); Ionized Calcium Level - ABG 1.1 mmol/L (1.1-1.4); Methemoglobin 0.2 % (0.4-1.5); Oxygen Device NC; PO2 ABG 67.8 mmHg (80.0-100.0); Potassium Level - ABG 3.7 mmol/L (3.5-5.0); Total Hemoglobin 17.2 g/dL (14-18)
[2022-02-06 09:46] LABS: Basophils % 0.1 %; Eosinophils # 0.5 10^3/uL (0.0-0.8); Eosinophils % 2.2 %; Hematocrit 48.6 % (42.0-52.0); Hemoglobin 16.6 g/dL (11.7-16.6); Lymphocytes # 1.4 10^3/uL (1.5-6.5); Lymphocytes % 6.2 %; Mean Corpuscular HGB Conc 34.2 g/dL (30.0-36.0); Mean Corpuscular Hemoglobin 30.1 pg (28.0-34.0); Mean Corpuscular Volume 88.2 fl (80-94); Mean Platelet Volume 11.8 fL (7.4-10.4); Monocytes # 1.3 10^3/uL (0.2-0.9); Monocytes % 5.7 %; Neutrophils # 18.82 10^3/uL (1.8-8.0); Neutrophils % 85.3 %; Nucleated Red Blood Cells % 0 %; Platelet Count 270 10^3/cmm (130-400); Red Blood Count 5.51 10^6/uL (4.1-5.3); Red Cell Distribution Width 13.1 % (12.1-15.1)
[2022-02-06] MEDS: dexamethasone 10 mg/mL INJ 6 MG IVP (09:52)
[2022-02-06 10:07] LABS: Alanine Aminotransferase 8 U/L (0-41); Albumin Level 3.3 g/dL (3.5-5.2); Alkaline Phosphatase 40 IU/L (40-130); Anion Gap 16.8 (5-19); Aspartate Amino Transferase 11 U/L (0-40); Blood Urea Nitrogen 9 mg/dL (6-20); Calcium 8.7 mg/dL (8.5-10.5); Carbon Dioxide 23 mmol/L (22-29); Chloride 102 mmol/L (98-107); Globulin 2.6 g/dL (1.3-4.6); Glomerular Filtration Rate 123.2 mL/min (90-130); Glucose 98 mg/dL (65-115); Osmolality Calculated 285 mOsm/kg (285-295); Potassium 3.8 mmol/L (3.5-5.1); Sodium 138 mmol/L (136-145); Total Bilirubin 1.1 mg/dL (0.15-1.2); Total Protein 5.9 g/dL (6.6-8.7)
[2022-02-06 10:13] LABS: Procalcitonin 0.13 ng/mL (0-0.5)
[2022-02-06 11:15] LABS: D Dimer 5.74 ug/mIFEU (0-0.59)
[2022-02-06 11:18] LABS: Add Urine Microscopic? YES; Bilirubin Urine Neg (Negative); Blood Urine Neg (Negative); Glucose Urine UA Norm (Normal); Ketones Urine 1+ (Negative); Leukocyte Esterase Urine Negative (Negative); Nitrate Urine Negative (Negative); Protein Urine Neg (Negative); Sulfosalicylic Acid Urine Negative (Negative); Urine Appearance Clear (CLEAR); Urine Color Dark Yellow (Yellow); Urobilinogen Urine 1 mg/dL (Negative); pH Urine 5 (5-7)
--- NOTE | 2022-02-06 11:22 | CTR_ITS ---
PROCEDURE INFORMATION: Exam: CTA Chest With Contrast Exam date and time: 02/06/2022 11:52 AM Age: 21 years old Clinical indication: Shortness of breath; Additional info: Elevated ddimer TECHNIQUE: Imaging protocol: Computed tomographic angiography of the chest with contrast. 3D rendering (Not supervised by radiologist): MIP and/or 3D reconstructed images were created by the technologist. Total images: 849 Radiation optimization: All CT scans at this facility use at least one of these dose optimization techniques: automated exposure control; mA and/or kV adjustment per patient size (includes targeted exams where dose is matched to clinical indication); or iterative reconstruction. Contrast material: OMNI 350; Contrast volume: 74 ml; Contrast route: INTRAVENOUS (IV); COMPARISON: CR XR chest 1V portable [id number] 02/06/2022 9:14 AM RADIATION DOSE METRICS: Total DLP (mGy-cm): 567.12 FINDINGS: Pulmonary arteries: Pulmonary vascular congestion. Pulmonary artery evaluation of good technical quality with no pulmonary artery embolism identified. Aorta: Unremarkable. No aortic aneurysm. No aortic dissection. Lungs: Compressive atelectasis of the lungs. Bilateral irregular areas of ground-glass opacity, lung consolidation, and interstitial thickening. Pulmonary interstitial edema. Pleural spaces: Small bilateral pleural effusions are present. Heart: No coronary arterial calcification is detected. Lymph nodes: Numerous mildly prominent mediastinal lymph nodes felt to be reactive. Bones/joints: Unremarkable. No acute fracture. Soft tissues: Unremarkable. CT/CT angio chest PE protcl [id number] IMPRESSION: 1. No pulmonary artery embolism identified. 2. Numerous mildly prominent mediastinal lymph nodes felt to be reactive. 3. Small bilateral pleural effusions with compressive atelectasis. 4. Bilateral irregular areas of ground-glass opacity, lung consolidation, and interstitial thickening. Findings can be seen with organizing pneumonia, hypersensitivity pneumonitis, and acute lung injury. Imaging features can be seen with COVID-19 pneumonia, though are nonspecific and can occur with a variety of infectious and noninfectious processes. (Reference: Endy) 5. Pulmonary vascular congestion. 6. Pulmonary interstitial edema. REFERENCES: alexander Victoria al., Radiological Society of [place] Expert Consensus Statement on Reporting Chest CT Findings Related to COVID-19. Endorsed by the Society of Thoracic Radiology, the [place] [employer], and RSNA. Published November 15, 2019.
[2022-02-06 11:23] LABS: Add Urine Culture? No; RBC Urine 0-4 /hpf (0-2); Squamous Epithelial Cell Urine 0-4 /hpf (0-5); WBC Urine 0-4 /hpf (0-5)
[2022-02-06 11:34] LABS: Adenovirus Not Detected (NOT DETECT); Chlamydia Pneumoniae Not Detected (NOT DETECT); Coronavirus 229E,HKU1,NL63,OC4 Not Detected (NOT DETECT); Human Metapneumovirus Not Detected (NOT DETECT); Human Rhinovirus/Enterovirus Not Detected (NOT DETECT); Influenza A Not Detected (NOT DETECT); Influenza A H1 Not Detected (NOT DETECT); Influenza A H1-2009 Not Detected (NOT DETECT); Influenza A H3 Not Detected (NOT DETECT); Influenza B Not Detected (NOT DETECT); Mycoplasma Pneumoniae Not Detected (NOT DETECT); Parainfluenza Virus Type 1 Not Detected (NOT DETECT); Parainfluenza Virus Type 2 Not Detected (NOT DETECT); Parainfluenza Virus Type 3 Not Detected (NOT DETECT); Parainfluenza Virus Type 4 Not Detected (NOT DETECT); Respiratory Syncytial Virus A Not Detected (NOT DETECT); Respiratory Syncytial Virus B Not Detected (NOT DETECT); SARS-COV-2 Not Detected (NOT DETECT)
[2022-02-06] MEDS: iohexol 350 mg/mL 100 mL Btl IV (12:14)
--- NOTE | 2022-02-06 12:37 | PM.HP ---
Providers/Chief Complaint Admitting Physician: Chago Howe MD Chief Complaint: RESPIRATORY DISTRESS History of Present Illness Shahzad Vasquez is a 21 year old male presents with history of shortness of breath, cough, some ill-defined chest discomfort for the last 3 days. He believes he has had a fever at home, manifested by chills. Cough is productive of some yellowish sputum but no blood. He has not taken his temperature. He denies any recent travel, ill contacts. He reports he smokes, but does not really have any other inhalant usually. He reports he will occasionally vape, but it is extremely rare. He believes he might have vaped at 1 time in the last week. No vomiting, no diarrhea. Denies any repetitive lung infections in the past. States he is vaccinated for COVID. He brings a card and shows me that he got vaccinated in February and March 2021. He denies ever having COVID. 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 Denies any environmental exposures that he can think of. Thinks he might have mold at his house but is not sure. He does have a history of hypertension, and typically takes lisinopril 1 or 2 months ago when he felt his blood pressure was better. In the emergency department he has gotten a dose of dexamethasone. Review of Systems General: Reports: 10 or more systems reviewed and unremarkable except in HPI and below Const: Reports: fever(s), chills and fatigue Eyes: Denies: change in vision ENMT: Denies: throat pain Card: Reports: chest pain Resp: Reports: dyspnea and productive cough GI: Denies: abdominal pain, nausea or vomiting : Denies: flank pain Musc: Denies: neck pain Skin/Breast: Denies: rash Neuro: Denies: headache(s) Psych: Reports: anxiety and depression Endo: Denies: polyuria Ashutosh/Lymph: Denies: easy bruising All/Imm: Denies: urticaria Medications/Allergies Home Medications Medication Instructions Recorded Confirmed Last Taken Type lisinopril 20 mg tablet 20 mg PO DAILY 07/24/21 02/06/22 1 Month Ago History ~01/06/22 see pharmacy comment ibuprofen 200 mg tablet 800 mg PO Q6H PRN 02/06/22 02/06/22 02/06/22 History Allergies Allergy/AdvReac Type Severity Reaction Status Date / Time No Known Allergies Allergy Verified 02/06/22 09:26 PFSH Acute PFSH: Medical History Hypertension Surgical History History of oral surgery teeth Hx of appendectomy Family History Other Hypertension Social History Smoking and tobacco status: current every day smoker Alcohol intake: never Substance/Drug Use: never 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[employer], 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 He is tachycardic and appears anxious. HEENT: Atraumatic and normocephalic. Oropharynx clear. Neck is supple no lymphadenopathy thyromegaly Cardiovascular tachycardic, no murmur Lungs few crackles bibasilar. No wheezing Abdomen is soft nontender positive bowel sounds. No obvious organomegaly exams deferred Extremities no cyanosis clubbing or edema, cap refill brisk Skin no rash Neuro no focal deficits Data : 02/06/22 09:35 02/06/22 09:38 Other Labs: Chest x-ray bilateral infiltrates, diffuse and patchy right greater than left. No evidence of cardiomegaly. Dimer is 5.74 ABG demonstrates a pH 7.47, PCO2 30, PO2 68 on 4 L LFTs are normal Procalcitonin 0.13, within normal limits Urinalysis negative for protein, 0-4 reds, 0-4 whites Initial coronavirus test, PCR, not detected CTA demonstrates no pulmonary embolism, reactive mediastinal lymph nodes, small bilateral effusions, irregular areas of groundglass opacity Troponin and BNP normal. Micro: Microbiology 02/06/22 10:38 Blood Culture - Preliminary Blood SPECIMEN COLLECTED 02/06/22 10:40 Blood Culture - Preliminary Blood SPECIMEN COLLECTED A&P Assessment and plan (1) Pneumonia: His presentation is most consistent with COVID-19 pneumonia, with his bilateral groundglass infiltrates and interstitial edema. Hold off on overhydration Currently he is on high flow oxygen Pulmonary toilet with DuoNeb, budesonide Flutter valve, incentive spirometry His initial COVID test was negative. At this point I will repeat the test to make sure a good sample was obtained. His CRP is markedly elevated Continue dexamethasone Add Zosyn MRSA PCR, sputum culture CTA was performed demonstrating no pulmonary embolism DVT prophylaxis with Lovenox Will initiate remdesivir, and tocilizumab if repeat COVID is positive. Status: Acute (2) Elevated d-dimer: Status: Acute (3) Acute respiratory failure with hypoxia: Status: Acute Attestations Medical Necessity Statement*: Will require greater than 2 midnight stay secondary to acute respiratory failure with pneumonia requiring high flow oxygen Critical Care Time: The high probability of a clinically significant, sudden or life threatening deterioration of the patient's [pulmonary, cardiac] system(s) required my full and direct attention, intervention and personal management. The critical care time is as shown. This time is in addition to time spent performing any reported procedures but includes the following: [x] Data and vital sign review and interpretation [x] Patient assessment, examination and intervention [x] Documentation [x] Medication orders and management Critical Care Time (min): 61 Coding Level of Care Code Acute Manager Community Outreach for [facility] Fwd Diagnoses Pneumonia J18.9 Elevated d-dimer R79.89 Acute respiratory failure with hypoxia J96.01
[2022-02-06 13:00] LABS: Troponin T (5th) Once 12 ng/L (0-15)
[2022-02-06 13:08] LABS: C Reactive Protein 148.7 mg/L (0.0-4.9); Magnesium 1.7 mg/dL (1.7-2.3); NT Pro B Type Natriuretic Pept 81 pg/mL (0-125); Thyroid Stimulating Hormone 2.27 uIU/mL (0.27-4.20)
[2022-02-06 13:46] LABS: HIV 1 & 2 Antigen Non-Reactive (Non-Reactiv)
[2022-02-06 13:47] LABS: HIV 1 & 2 Antibody Non-Reactive (Non-Reactiv)
[2022-02-06] MEDS: piperacillin-tazobactam 3.375 GM in sodium chloride 0.9% (plus) 50 ML IV ×2 (14:42→21:57)
[2022-02-06] MEDS: enoxaparin 40 mg/0.4 mL Syringe SUBCUT (14:42)
[2022-02-06 15:22] LABS: Adenovirus Not Detected (NOT DETECT); Chlamydia Pneumoniae Not Detected (NOT DETECT); Coronavirus 229E,HKU1,NL63,OC4 Not Detected (NOT DETECT); Human Metapneumovirus Not Detected (NOT DETECT); Human Rhinovirus/Enterovirus Not Detected (NOT DETECT); Influenza A Not Detected (NOT DETECT); Influenza A H1 Not Detected (NOT DETECT); Influenza A H1-2009 Not Detected (NOT DETECT); Influenza A H3 Not Detected (NOT DETECT); Influenza B Not Detected (NOT DETECT); Mycoplasma Pneumoniae Not Detected (NOT DETECT); Parainfluenza Virus Type 1 Not Detected (NOT DETECT); Parainfluenza Virus Type 2 Not Detected (NOT DETECT); Parainfluenza Virus Type 3 Not Detected (NOT DETECT); Parainfluenza Virus Type 4 Not Detected (NOT DETECT); Respiratory Syncytial Virus A Not Detected (NOT DETECT); Respiratory Syncytial Virus B Not Detected (NOT DETECT); SARS-COV-2 Not Detected (NOT DETECT)
[2022-02-06] MEDS: benzonatate 100 mg Capsule 200 MG PO (16:13)
[2022-02-06] MEDS: azithromycin 500 MG in sodium chloride 0.9% 250 ML 250 MG IV (16:13)
[2022-02-06 16:32] LABS: Amphetamines Screen Urine Negative (Negative); Barbiturates Screen Urine Negative (Negative); Benzodiazepines Screen Urine Negative (Negative); Cocaine Screen Urine Negative (Negative); Opiate Screen Urine Negative (Negative); PCP Screen Urine Negative (Negative); THC Screen Urine Negative (Negative)
[2022-02-06] MEDS: ALPRAZolam 0.5 mg Tablet PO (17:11)
[2022-02-06] MEDS: ipratropium-albuterol 3 mL Neb INHALATION (20:31)
[2022-02-06] MEDS: budesonide 0.5 mg/2 mL Neb INHALATION (20:31)
[2022-02-06] MEDS: LORazepam 2 mg/mL INJ 1 mL 0.5 MG IVP (23:02)
[2022-02-06] MEDS: morphine 4 mg/mL SDV 1 mL 2 MG IVP (23:02)
[2022-02-07] VITALS (72 sets, daily range): BP systolic 110–175; BP diastolic 48–131; PULSE 89–131; RESP 18–52; TEMP 36.6–37.1; O2SAT 86–95
[2022-02-07] MEDS: ipratropium-albuterol 3 mL Neb INHALATION ×4 (02:17→20:12)
[2022-02-07] MEDS: piperacillin-tazobactam 3.375 GM in sodium chloride 0.9% (plus) 50 ML IV ×3 (05:08→21:51)
[2022-02-07] MEDS: acetaminophen 325 mg Tablet 650 MG PO (05:12)
[2022-02-07 05:38] LABS: Basophils % 0.1 %; Eosinophils # 0.7 10^3/uL (0.0-0.8); Eosinophils % 3.4 %; Hematocrit 45.4 % (42.0-52.0); Hemoglobin 15.2 g/dL (11.7-16.6); Lymphocytes # 1.1 10^3/uL (1.5-6.5); Lymphocytes % 4.9 %; Mean Corpuscular HGB Conc 33.5 g/dL (30.0-36.0); Mean Corpuscular Hemoglobin 29.6 pg (28.0-34.0); Mean Corpuscular Volume 88.3 fl (80-94); Mean Platelet Volume 12.7 fL (7.4-10.4); Monocytes # 1.4 10^3/uL (0.2-0.9); Monocytes % 6.6 %; Neutrophils # 18.24 10^3/uL (1.8-8.0); Neutrophils % 84.3 %; Nucleated Red Blood Cells % 0 %; Platelet Count 248 10^3/cmm (130-400); Red Blood Count 5.14 10^6/uL (4.1-5.3); Red Cell Distribution Width 13.2 % (12.1-15.1); White Blood Count 21.7 10^3/uL (4.5-13.0)
[2022-02-07 05:56] LABS: Alanine Aminotransferase 8 U/L (0-41); Albumin Level 3.3 g/dL (3.5-5.2); Alkaline Phosphatase 37 IU/L (40-130); Anion Gap 15.1 (5-19); Aspartate Amino Transferase 8 U/L (0-40); Blood Urea Nitrogen 12 mg/dL (6-20); Calcium 8.5 mg/dL (8.5-10.5); Carbon Dioxide 24 mmol/L (22-29); Chloride 100 mmol/L (98-107); Globulin 2.5 g/dL (1.3-4.6); Glomerular Filtration Rate 143.8 mL/min (90-130); Glucose 113 mg/dL (65-115); Osmolality Calculated 281 mOsm/kg (285-295); Potassium 4.1 mmol/L (3.5-5.1); Sodium 135 mmol/L (136-145); Total Bilirubin 0.6 mg/dL (0.15-1.2); Total Protein 5.8 g/dL (6.6-8.7)
--- NOTE | 2022-02-07 06:09 | PC.NURSE ---
2225 Reported vital signs including elevated heart rate and respiratory rate to Dr. Mejia. Discussed patient's labored breathing and report of anxiety and restlessness. Orders for morphine and Ativan. Medications given per order. Patient able to rest comfortably, heart rate and respiratory rate decreased.
[2022-02-07] MEDS: dexamethasone 10 mg/mL INJ 6 MG IVP (08:03)
[2022-02-07] MEDS: pantoprazole DR 40 mg Tablet PO (08:04)
[2022-02-07] MEDS: budesonide 0.5 mg/2 mL Neb INHALATION ×2 (08:44→20:12)
--- NOTE | 2022-02-07 09:22 | USCV_ITS ---
Rickie Vasquez Age: 21 Gender: M : 2000 Exam Date: 02/07/2022 10:32 Ordering Phys: Ja Hurley MD Technologist: Cliff Kim Exam Location: [facility] [place] Indication: Congestive heart failure BP: 132 / 75 HR: 105 Rhythm: Sinus Technical Quality: Adequate MEASUREMENTS (Male / Female) Normal Values 2D ECHO LV Diastolic Diameter PLAX 4.2 cm 4.2 - 5.9 / 3.9 - 5.3 cm LV Systolic Diameter PLAX 2.9 cm IVS Diastolic Thickness 1.1 cm 0.6 - 1.0 / 0.6 - 0.9 cm IVS Systolic Thickness 1.4 cm LVPW Diastolic Thickness 1.2 cm 0.6 - 1.0 / 0.6 - 0.9 cm LVPW Systolic Thickness 1.3 cm LVOT Diameter 2.0 cm LV Ejection Fraction 2D Teich 59.8 % LV Ejection Fraction MOD 2C 71.1 % LV Ejection Fraction 2C AL 70.3 % LA Diameter 3.4 cm IVC Diameter 1.7 cm M-MODE LV Diastolic Diameter MM 5.5 cm 4.2 - 5.9 / 3.9 - 5.3 cm LV Systolic Diameter MM 3.7 cm LV Ejection Fraction MM Teich 61.1 % IVS Diastolic Thickness MM 1.1 cm 0.6 - 1.0 / 0.6 - 0.9 cm IVS Systolic Thickness MM 1.3 cm LVPW Diastolic Thickness MM 1.4 cm 0.6 - 1.0 / 0.6 - 0.9 cm LVPW Systolic Thickness MM 1.7 cm RV Diastolic Diameter MM 1.5 cm Aortic Annulus Diameter 3.5 cm LA Ao Ratio MM 1.1 MV E Point Septal Separation 0.9 cm DOPPLER AV Peak Velocity 157.0 cm/s LVOT Peak Velocity 119.0 cm/s AV Area Cont Eq vti 3.2 cm squared AV Area Cont Eq pk 2.5 cm squared MV Area PHT 5.0 cm squared Mitral E to A Ratio 0.6 MV E' Velocity 45.0 cm/s Mitral E to MV E' Ratio 6.2 Mitral E to LV E' Lateral Ratio 13.5 Mitral E to LV E' Septal Ratio 4.0 TR Peak Velocity 210.3 cm/s TR Peak Gradient 17.7 mmHg TV Peak E Velocity 103.0 cm/s Right Atrial Pressure 3.0 mmHg Pulmonary Artery Systolic Pressu 20.7 mmHg PV Peak Velocity 135.0 cm/s FINDINGS Left Ventricle Normal left ventricular size, systolic function and wall thickness, with no regional wall motion abnormalities. Left ventricular ejection fraction is estimated at 60 %. Grade I diastolic dysfunction (abnormal relaxation filling pattern), normal to mildly elevated filling pressures. Right Ventricle Normal right ventricular size and systolic function. Right ventricular systolic pressure 20.7 mmHg. Right Atrium Normal right atrial size. Left Atrium Normal left atrial size. Mitral Valve Structurally normal mitral valve. No mitral valve stenosis. No mitral valve regurgitation. Aortic Valve Structurally normal trileaflet aortic valve. No aortic valve stenosis. No aortic valve regurgitation. Tricuspid Valve Structurally normal tricuspid valve. No tricuspid valve stenosis. Trace tricuspid valve regurgitation. Pulmonic Valve Structurally normal pulmonic valve. No pulmonary valve stenosis. No pulmonary valve regurgitation. Pericardium No pericardial effusion. Aorta Normal size aortic root and proximal ascending aorta. IVC Normal sized inferior vena cava. CONCLUSIONS 1. Normal left ventricular size, systolic function and wall thickness, with no regional wall motion abnormalities. Left ventricular ejection fraction is estimated at 60 %. Grade I diastolic dysfunction (abnormal relaxation filling pattern), normal to mildly elevated filling pressures. 2. Normal right ventricular size and systolic function. 3. Trace tricuspid valve regurgitation. 4. No prior similar studies to compare. Lolita Sorto MD (Electronically Signed) Final Date: 07 February 2022 19:29 S
[2022-02-07] MEDS: FUROsemide 10 mg/mL SDV 4mL 40 MG IVP ×2 (10:22→14:41)
[2022-02-07 10:25] LABS: Iron 38 ug/dL (59-158); NT Pro B Type Natriuretic Pept 87 pg/mL (0-125); Percent Saturation 20.7 % (20-50); Total Iron Binding Capacity 183 mcg/dl; Unsaturated Iron Binding 145 ug/dL (112-347)
[2022-02-07] MEDS: levoFLOXacin 500 mg Tablet PO (10:29)
--- NOTE | 2022-02-07 12:39 | XRR_ITS ---
PROCEDURE INFORMATION: Exam: XR Chest Exam date and time: 02/07/2022 1:19 PM Age: 21 years old Clinical indication: Shortness of breath; Additional info: Increased o2 requirement TECHNIQUE: Imaging protocol: Radiologic exam of the chest. Views: 1 view. COMPARISON: CR XR chest 1V portable [id number] 02/06/2022 9:14 AM FINDINGS: Lungs: There is multifocal right lung consolidation and opacification in the mid and inferior left lung. Pleural spaces: There is a small right pleural effusion. No pneumothorax. Heart/Mediastinum: Unremarkable. No cardiomegaly. Bones/joints: Unremarkable. XR/XR chest 1V portable [id number] IMPRESSION: There is multifocal bilateral lung disease consistent with pneumonia and/or edema.
[2022-02-07] MEDS: enoxaparin 40 mg/0.4 mL Syringe SUBCUT (14:42)
--- NOTE | 2022-02-07 14:47 | PM.CONSULT ---
Providers/Reason For Consult Consulting Physician/Specialty*: Pulmonary critical care medicine Reason for Consult*: Acute hypoxic respiratory failure Requesting Physician: Dr. Howe Attending Physician: Ja Hurley MD History of Present Illness History of Present Illness Rickie Vasquez is a 21 year old male who presented to the hospital yesterday with worsening shortness of breath. The patient has an interesting history. It appears that he was diagnosed with hypertension at the age of 16. The patient has been taking lisinopril. He was more regular and taking his medication however over the past couple of months he had not been taking his medication. His mom is in the ICU with him today. According to his mom, the patient was evaluated by his primary care provider in [place], underwent testing and no abnormalities were identified. The patient had never been evaluated by endocrinology, nephrology or any hypertension specialist. Initially, he was on 10 mg of lisinopril which was increased to 20 with increasing blood pressure. The patient gives history of hypertension with early onset for his dad. The patient had suffered from acute appendicitis in July 2021. He underwent appendectomy at that time. The patient tells me that since his surgery he has lost his appetite and he has lost approximately 50 pounds. The patient has significant anxiety. He has been smoking approximately a pack a day for the past couple of months. He has also been vaping for the same duration. The patient tells me that the last time he had weight was couple of weeks ago. He reports using prefilled cartridges for vaping. He denies is any inhaled drug abuse. His urine tox screen was negative. The patient complains of worsening shortness of breath for 3 to 4 days. Initially he started having mild cough this was followed by worsening shortness of breath with exertion, orthopnea and paroxysmal nocturnal dyspnea. The patient had not suffered from any fever at home or in the hospital. He has yellowish sputum production in the hospital. When I asked him, he denied any history of asthma. In the emergency room, his blood work revealed leukocytosis of 22,000. His electrolytes are normal, CRP was elevated at 148. His procalcitonin level was normal. There was no RBC casts in the urine. His chest x-ray revealed diffuse bilateral infiltrate with right greater than left. His CT angiogram did not reveal any pulmonary embolism. There was bilateral diffuse groundglass opacity and consolidation. Interestingly, the patient had significant crazy paving especially in the right lower lobe. He also had bilateral pleural effusion. The left atrial size appeared to be normal however, according to my read, there is some evidence of left ventricular hypertrophy. The patient has been receiving broad-spectrum antibiotic, Lasix, high-dose steroid. He tells me that he is feeling somewhat better than yesterday however he is still unable to lay on his back. He is extremely anxious, tachycardic, tachypneic. He was on 50% oxygen high flow nasal cannula yesterday currently is on 12 L oxygen. His COVID PCR was negative twice yesterday. I performed a bedside ultrasound. The patient has bilateral B-lines. There are small bilateral pleural effusion. Bedside echocardiogram revealed good ejection fraction. There is no left atrial enlargement. The E/E prime ratio was not elevated. Review of Systems Narrative: General: Denies any fever, reports fatigue, loss of appetite Skin: No rash HEENT: No nasal congestion, rhinitis, sinusitis Neck: There is no neck swelling, mass or swollen glands. Respiratory: Cough, sputum production, wheezing, exertional shortness of breath Cardiovascular: No chest pain, but reports orthopnea and paroxysmal nocturnal dyspnea. No peripheral edema Gastrointestinal: No abdominal pain, nausea, vomiting, or melena Musculoskeletal: No joint pain or swelling, muscle weakness, morning stiffness, numbness or tingling Neurological: Patient is awake alert and oriented x3, no paralysis, gross motor function is normal Psychiatric: Positive for anxiety and depression. Medications/Allergies Home Medications Medication Instructions Recorded Confirmed Last Taken Type lisinopril 20 mg tablet 20 mg PO DAILY 07/24/21 02/06/22 1 Month Ago History ~01/06/22 see pharmacy comment ibuprofen 200 mg tablet 800 mg PO Q6H PRN 02/06/22 02/06/22 02/06/22 History Allergies Allergy/AdvReac Type Severity Reaction Status Date / Time No Known Allergies Allergy Verified 02/06/22 09:26 Current Medications Generic Name Dose Route Start Last Admin Trade Name Freq PRN Reason Stop Dose Admin Acetaminophen 650 mg 02/06/22 13:50 02/07/22 05:12 Acetaminophen 325 Mg Tablet PO 650 mg Q6H PRN Administration Mild/Mod Pain Or Temp >/= 101 Albuterol/Ipratropium 3 ml 02/06/22 21:00 02/07/22 08:44 Ipratropium-Albuterol 3 Ml Neb INHALATION 3 ml Q6H.RESPIRATORY GEOVANNA Administration Alprazolam 0.5 mg 02/06/22 17:02 02/06/22 17:11 Alprazolam 0.5 Mg Tablet PO 0.5 mg Q6H PRN Administration ANXIETY Benzonatate 200 mg 02/06/22 15:52 02/06/22 16:13 Benzonatate 100 Mg Capsule PO 200 mg TID PRN Administration COUGH Budesonide 0.5 mg 02/06/22 20:00 02/07/22 08:44 Budesonide 0.5 Mg/2 Ml Neb INHALATION 0.5 mg BID.RESPIRATORY GEOVANNA Administration Enoxaparin Sodium 40 mg 02/06/22 15:00 02/07/22 14:42 Enoxaparin 40 Mg/0.4 Ml Syringe SUBCUT 40 mg Q24H GEOVANNA Administration Piperacillin Sod/Tazobactam 50 mls @ 12.5 mls/hr 02/06/22 14:00 02/07/22 14:42 Sod 3.375 gm/ Sodium Chloride IV 12.5 mls/hr Q8H GEOVANNA Administration Vancomycin HCl 1,500 mg/ 250 mls @ 166.667 mls/hr 02/07/22 10:30 02/07/22 10:23 Sodium Chloride IV 166.67 mls/hr Q8H GEOVANNA Administration Levofloxacin 500 mg 02/07/22 10:30 02/07/22 10:29 Levofloxacin 500 Mg Tablet PO 500 mg DAILY@0600 GEOVANNA Administration Protocol Methylprednisolone Sodium Succinate 80 mg 02/07/22 09:30 02/07/22 14:42 Methylprednisolone Sod Succ 125 Mg/2 Ml Inj IVP 80 mg Q6H GEOVANNA Administration Pantoprazole Sodium 40 mg 02/07/22 09:00 02/07/22 08:[address] 40 Mg Tablet PO 40 mg DAILY GEOVANNA Administration PFSH Acute PFSH: Medical History Hypertension Surgical History History of oral surgery teeth Hx of appendectomy Family History Other Hypertension Social History Smoking and tobacco status: current every day smoker Alcohol intake: never Substance/Drug Use: never 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[employer], 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 Vitals/I&O/Wt Last Vital Signs Temp 98.8 F 02/07/22 08:40 Pulse 108 H 02/07/22 14:00 Resp 38 H 02/07/22 14:00 BP 145/79 02/07/22 14:00 Pulse Ox 93 02/07/22 14:00 02/06/22 02/07/22 02/07/22 22:59 06:59 14:59 Intake Total 840 / 840 150 / 990 550 / 550 Output Total 600 / 600 300 / 300 Balance 240 / 240 150 / 390 250 / 250 Weight last 48 hrs Weight 264 lb 5 oz Weight 251 lb Physical Exam Narrative: General: Patient is awake alert and oriented, visibly anxious, not complaining of shortness of breath while resting Neck: No JVD Respiratory: Auscultation: Fine crackles bilaterally, no wheezing or rhonchi Cardiovascular: Regular rate and rhythm, tachycardia, S1-S2 present, no murmur, no peripheral edema. Abdomen: Soft, nontender, distended from obesity, positive bowel sound Musculoskeletal: No obvious joint deformity Skin: No rash Neuro: Mental status is normal, no gross cranial nerve deficit, normal gross motor function Data : 02/07/22 04:45 02/07/22 04:45 Micro: Microbiology 02/06/22 14:00 Gram Stain - Final Sputum - Expectorated Sputum Sputum Culture - Preliminary 02/06/22 10:38 Blood Culture - Preliminary Blood NEGATIVE TO DATE 02/06/22 10:40 Blood Culture - Preliminary Blood NEGATIVE TO DATE 02/06/22 14:30 MRSA Culture - Final Nose 02/06/22 10:55 Legionella Urinary Antigen - Final Urine,Voided Bacterial Antigens - Final Other data: I have reviewed the patient's laboratory, microbiologic and radiologic data. The white count is similar to yesterday. No acute kidney injury. All microbiologic work-up has been negative. Procalcitonin level is normal. A&P Assessment and plan (1) Acute respiratory failure with hypoxia: The patient is suffering from acute hypoxic respiratory failure in the setting of multilobar infiltrate. The etiology of the pulmonary infiltrate is unclear at this time. The patient gives history of recently starting smoking which can be associated with acute eosinophilic pneumonia. However, the patient also vapes and [place] is also a possibility. His procalcitonin level is normal. However, atypical pneumonia including viral pneumonia can have normal procalcitonin level. COVID-19 has certainly be of concern however the patient is vaccinated as well as had 2 negative PCR's. There is no evidence of hematuria or alveolar hemorrhage although diffuse alveolar hemorrhage can occur in the absence of hemoptysis. There is no RBC casts in the urine. The presence of bilateral pleural effusion is also interesting. Although the patient does not have significant left atrial enlargement, whether he had a complaint of pulmonary edema which is cardiogenic, could not be completely ruled out. The patient is broadly covered with antibiotic including atypical coverage. He is on high-dose Solu-Medrol for suspicion of acute eosinophilic pneumonia. I would recommend cutting down the dose to 40 to 60 mg of prednisone equivalent. The patient is going to receive an additional dose of Lasix. If he does not make recovery, he may need a bronchoscopic evaluation. Additionally, limited immunologic work-up may also be necessary. The patient is extremely anxious. I have explained his condition to him and his mom. Status: Acute (2) Pneumonia: Please see above. Status: Acute (3) Hypertension: The patient was diagnosed with hypertension at the age of 16. His mom told me that he had undergone an extensive work-up. He was worked up by Dr. Coleman in [place]. I think we should obtain this record. It is unusual to have hypertension at the age of 16. I will continue to follow the patient. Status: Acute Coding Level of Care Code Acute [facility] for [facility] Diagnoses Acute respiratory failure with hypoxia J96.01 Pneumonia J18.9 Hypertension I10
[2022-02-07 15:19] LABS: Hepatitis A Antibody IgM Non-Reactive (Nonreactive); Hepatitis B Core AB, Total Non-Reactive (Nonreactive); Hepatitis B Surface AB 5.3 (11.5-1000); Hepatitis B Surface Antigen Non-Reactive (Nonreactive); Hepatitis C Virus Antibody Non-Reactive (Nonreactive)
[2022-02-07] MEDS: ALPRAZolam 0.5 mg Tablet PO ×2 (15:21→22:35)
[2022-02-07 15:25] LABS: Lactate Dehydrogenase 173 U/L (135-225)
[2022-02-07] MEDS: metoprolol tartrate 1 mg/1 mL SDV 5 mL 5 MG IVP (17:52)
--- NOTE | 2022-02-07 18:03 | P.PN_ITS ---
Subjective Subjective: Hospital course, labs appreciated. Examination laying comfortably in bed on 35 L 55% with mother at bedside. Patient saturating in mid to high 80s. During the day he was transitioned over to 12 L of high flow nasal cannula saturating 94%. He desaturated on minimal ambulation and after which she was placed back on heated high flow. By the evening patient had transition back to high flow nasal cannula saturating 94%. His heart rate has remained in 100-1 30s. Blood pressures have remained e levated as well. Patient anxious. Has remained afebrile. As per the patient and patient's mother he has recently started vaping 2 months ago. Has recently moved to a new house where they found mold 2 months ago. 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 Does not remember being exposed to something new. Has history of chronic hypertension since age of 16 for which she supposed to take lisinopril has not taken over the last few months. Vitals/I&O/Wt Last Vital Signs Temp 98.8 F 02/07/22 08:40 Pulse 124 H 02/07/22 16:30 Resp 27 H 02/07/22 16:30 BP 147/70 02/07/22 16:30 Pulse Ox 94 02/07/22 16:30 02/07/22 02/07/22 02/07/22 06:59 14:59 22:59 Intake Total 150 / 990 800 / 800 Output Total 300 / 300 Balance 150 / 390 500 / 500 Weight last 48 hrs Weight 119.89 kg Weight 113.852 kg Physical Exam Narrative: General exam is a white male, with moderate respiratory distress, on high flow oxygen. He is tachycardic and appears anxious. HEENT: Atraumatic and normocephalic. Oropharynx clear. Neck is supple no lymphadenopathy thyromegaly Cardiovascular tachycardic, no murmur Lungs few crackles bibasilar. No wheezing Abdomen is soft nontender positive bowel sounds. No obvious organomegaly exams deferred Extremities no cyanosis clubbing or edema, cap refill brisk Skin no rash Neuro no focal deficits Data : 02/07/22 04:45 02/07/22 04:45 Micro: Microbiology 02/06/22 14:00 Gram Stain - Final Sputum - Expectorated Sputum Sputum Culture - Preliminary 02/06/22 10:38 Blood Culture - Preliminary Blood NEGATIVE TO DATE 02/06/22 10:40 Blood Culture - Preliminary Blood NEGATIVE TO DATE 02/06/22 14:30 MRSA Culture - Final Nose 02/06/22 10:55 Legionella Urinary Antigen - Final Urine,Voided Bacterial Antigens - Final A&P Assessment and plan (1) Acute respiratory failure with hypoxia: Found to have multilobular infiltrate bilaterally on CT scan. Etiology unclear at this time. COVID-19 PCR x2 negative. High suspicion of allergic pneumonitis versus atypical pneumonia including viral pneumonia. Cannot rule out vaping associated lung injury. Check MRSA swab, sputum culture, procalcitonin. For now broaden coverage with vancomycin. Add Levaquin. Continue with Zosyn. For concerns of possible mold at home check beta D glucan, LDH, Aspergillus PCR. Will treat with high-dose steroids. Solu-Medrol 40 mg twice daily. Given concerns of uncontrolled hypertension since age of 16. IV Lasix 40 mg stat. Will dose on a daily basis. Plan for net negative of 2 L. Strict input output charting, daily weights. Echocardiogram. Status: Acute (2) Pneumonia: Keep saturation over 88%. Transition over to high flow nasal cannula. BiPAP nightly. Cannot rule out a component of sleep apnea. Status: Acute (3) Elevated d-dimer: Status: Acute Plan Appreciate pulmonology recommendations. Hypertension: Chronic as per patient and patient's mother. Not on current medication. Supposed to be on lisinopril 20 mg daily. As per the mother has had aggressive work-up with PCP. Will request documents. For now start on metoprolol 25 mg twice daily. Goal blood pressure less than 140/90 on Hg. Full code. Critically ill. Lovenox 40 mg daily. Protonix. Attestations Medical Necessity Statement*: Requires further hospitalization for management of acute hypoxic respiratory failure Critical Care Time: The high probability of a clinically significant, sudden or life threatening deterioration of the patient's [respiratory system(s) required my full and direct attention, intervention and personal management. The critical care time is as shown. This time is in addition to time spent performing any reported procedures but includes the following: [x] Data and vital sign review and interpretation [x] Patient assessment, examination and intervention [x] Documentation [x] Medication orders and management Coding Level of Care Code Acute [employer]st for [facility] Diagnoses Pneumonia J18.9 Elevated d-dimer R79.89 Acute respiratory failure with hypoxia J96.01
--- NOTE | 2022-02-07 18:35 | PC.NURSE ---
Patient became SOB dyspenic and desatted to low 80s during Echo while layed supine, Placed from 15L HF to 55% HF per RT, Dr. Hurley came to bedside, gave v.o. for bipap PRN, IV 5mg metoprolol for HR 130s and HTN, stated to give ordered Xanax tonight to allow patient to rest overnight
--- NOTE | 2022-02-07 19:56 | PC.NURSE ---
Pt states that he cannot void unless standing. Pt assisted to standing position to use urinal. Oxygen increased to 15L high flow.
--- NOTE | 2022-02-07 20:39 | PC.NURSE ---
Oxygen delivery charted as nasal cannula from [id number] in error. Pt actually on high flow nasal cannula.
[2022-02-07] MEDS: metoprolol tartrate 25 mg Tablet PO (20:42)
[2022-02-07] MEDS: morphine 4 mg/mL SDV 1 mL 2 MG IVP (23:18)
--- NOTE | 2022-02-07 23:46 | PC.NURSE ---
Pt reports increased anxiety due to lack of sleep. Monitor in room placed on sleep mode. His mother has encouraged him to turn off his phone, but he refuses.
--- NOTE | 2022-02-07 23:50 | PC.NURSE ---
Pt cannot tolerate turning and repositioning at this time.
[2022-02-08] VITALS (68 sets, daily range): BP systolic 112–141; BP diastolic 52–77; PULSE 58–126; RESP 15–37; TEMP 36.9; O2SAT 87–100
--- NOTE | 2022-02-08 01:51 | PC.NURSE ---
Oxygen saturation suddenly decreased to 80%. Pt had taken oxygen off in his sleep. High flow nasal cannula placed on patient. Saturations increased to 90% within 1 minute.
--- NOTE | 2022-02-08 03:03 | PC.NURSE ---
Pt removed oxygen to cough. Oxygen quickly dropped to 80%. HHF placed back on patient. Pt sat more upright and able to cough out large amount of thick yellow sputum.
[2022-02-08] MEDS: ipratropium-albuterol 3 mL Neb INHALATION ×4 (03:11→20:09)
[2022-02-08] MEDS: morphine 4 mg/mL SDV 1 mL 2 MG IVP ×2 (03:54→08:38)
--- NOTE | 2022-02-08 04:15 | PC.NURSE ---
Pt cannot take a deep breath or use IS without coughing. He complains of dry mucous membranes. Sputum is now a very bright shade of yellowish green.
--- NOTE | 2022-02-08 04:19 | PC.NURSE ---
Pt assisted to standing position on side of bed to use urinal.
[2022-02-08 05:41] LABS: Basophils % 0.1 %; Eosinophils # 0.3 10^3/uL (0.0-0.8); Eosinophils % 1.5 %; Hematocrit 43.3 % (42.0-52.0); Hemoglobin 14.7 g/dL (11.7-16.6); Lymphocytes # 1.1 10^3/uL (1.5-6.5); Mean Corpuscular HGB Conc 33.9 g/dL (30.0-36.0); Mean Corpuscular Hemoglobin 29.8 pg (28.0-34.0); Mean Corpuscular Volume 87.7 fl (80-94); Mean Platelet Volume 12.3 fL (7.4-10.4); Monocytes # 0.6 10^3/uL (0.2-0.9); Monocytes % 2.7 %; Neutrophils # 19.14 10^3/uL (1.8-8.0); Neutrophils % 90.1 %; Nucleated Red Blood Cells % 0 %; Platelet Count 301 10^3/cmm (130-400); Red Blood Count 4.94 10^6/uL (4.1-5.3); Red Cell Distribution Width 13.2 % (12.1-15.1); White Blood Count 21.2 10^3/uL (4.5-13.0)
[2022-02-08] MEDS: piperacillin-tazobactam 3.375 GM in sodium chloride 0.9% (plus) 50 ML IV ×3 (05:55→22:00)
[2022-02-08] MEDS: levoFLOXacin 500 mg Tablet PO (05:55)
--- NOTE | 2022-02-08 06:00 | XRR_ITS ---
PROCEDURE INFORMATION: Exam: XR Chest Exam date and time: 02/08/2022 5:59 AM Age: 21 years old Clinical indication: Shortness of breath; Additional info: [place] TECHNIQUE: Imaging protocol: Radiologic exam of the chest. Views: 1 view. COMPARISON: CR (CHEST, ) 02/07/2022 1:19 PM FINDINGS: Lungs: Bilateral airspace opacities throughout the lungs without significant change from prior exam. Persistent comparative relative sparing of the left upper lobe, unchanged from prior exam. Low lung volumes. Pleural spaces: No pneumothorax. No pleural effusion. Heart/Mediastinum: The cardiomediastinal silhouette is within normal limits. Bones/joints: Unremarkable. XR/XR chest 1V portable [id number] IMPRESSION: No significant change from prior exam.
[2022-02-08 06:07] LABS: Alanine Aminotransferase 11 U/L (0-41); Albumin Level 3.5 g/dL (3.5-5.2); Alkaline Phosphatase 31 IU/L (40-130); Aspartate Amino Transferase 9 U/L (0-40); Blood Urea Nitrogen 14 mg/dL (6-20); C Reactive Protein 73.8 mg/L (0.0-4.9); Carbon Dioxide 25 mmol/L (22-29); Chloride 102 mmol/L (98-107); Chol HDL Ratio 5.48 mg/dL (1.0-5.00); Cholesterol 148 mg/dL (0-200); Globulin 2.6 g/dL (1.3-4.6); Glomerular Filtration Rate 171.8 mL/min (90-130); Glucose 138 mg/dL (65-115); HDL Cholesterol 27 mg/dL (60-100); LDL Cholesterol Calculated 105 mg/dL (50-129); Osmolality Calculated 289 mOsm/kg (285-295); Sodium 138 mmol/L (136-145); Total Bilirubin 0.3 mg/dL (0.15-1.2); Total Protein 6.1 g/dL (6.6-8.7); Triglycerides 80 mg/dL (0-150); VLDL Cholestrol Calculation 16 mg/dL (0-30)
--- NOTE | 2022-02-08 06:09 | PC.NURSE ---
Scant amount of blood streaking in sputum.
[2022-02-08 06:36] LABS: Estmated Average Glucose 108; Hemoglobin A1C 5.4 % (4.0-6.0)
[2022-02-08] MEDS: budesonide 0.5 mg/2 mL Neb INHALATION ×2 (08:17→20:09)
[2022-02-08] MEDS: pantoprazole DR 40 mg Tablet PO (08:53)
[2022-02-08] MEDS: metoprolol tartrate 25 mg Tablet PO ×2 (08:53→20:36)
[2022-02-08] MEDS: FUROsemide 10 mg/mL SDV 4mL 40 MG IVP (10:07)
[2022-02-08] MEDS: dexmedeTOMIDine 0.9 % NaCL 400 MCG/100 ML PREMIX IV (10:08)
[2022-02-08] MEDS: escitalopram 10 mg Tablet PO (10:08)
[2022-02-08 10:20] LABS: Vancomycin Trough 11.4 ug/mL (10-15)
--- NOTE | 2022-02-08 11:34 | PC.NURSE ---
Dr. Reyna at bedside, gave v.o. to be NPO after midnight for planned bronchoscopy tomorrow
[2022-02-08] MEDS: enoxaparin 40 mg/0.4 mL Syringe SUBCUT (14:13)
--- NOTE | 2022-02-08 16:18 | P.PN_ITS ---
Subjective Subjective: Overnight patient had an episode of anxiety during her blood draw after which his FiO2 requirements went up to 80%. On examination patient is on BiPAP with family at bedside. Patient relaxed and calm. Currently on 30% FiO2. Continues to remain tachycardic. Good urine output in last 24 hours after Lasix. Breathing. Patient started on Precedex drip after which his oxygen requirements down, patient was put on heated high flow 35 L 55%, patient was able to ambulate and walk in the room and then later sat in the room as well. On Precedex of 0.2. Vitals/I&O/Wt Last Vital Signs Temp 98.5 F 02/08/22 04:00 Pulse 84 02/08/22 15:45 Resp 24 H 02/08/22 15:45 BP 119/57 02/08/22 14:30 Pulse Ox 87 L 02/08/22 15:45 02/08/22 02/08/22 02/08/22 06:59 14:59 22:59 Intake Total 500 / 2040 300 / 300 Output Total 450 / 3400 Balance 50 / -1360 300 / 300 Weight last 48 hrs Weight 114.986 kg Weight 119.89 kg Physical Exam Narrative: General exam is a white male, with moderate respiratory distress, on high flow oxygen. He is tachycardic and appears anxious. HEENT: Atraumatic and normocephalic. Oropharynx clear. Neck is supple no lymphadenopathy thyromegaly Cardiovascular tachycardic, no murmur Lungs few crackles bibasilar. No wheezing Abdomen is soft nontender positive bowel sounds. No obvious organomegaly exams deferred Extremities no cyanosis clubbing or edema, cap refill brisk Skin no rash Neuro no focal deficits Data : 02/08/22 05:05 02/08/22 05:05 Micro: Microbiology 02/06/22 14:00 Gram Stain - Final Sputum - Expectorated Sputum Sputum Culture - Final A&P Assessment and plan (1) Acute respiratory failure with hypoxia: Found to have multilobular infiltrate bilaterally on CT scan. Etiology unclear at this time. COVID-19 PCR x2 negative. High suspicion of allergic pneumonitis versus atypical pneumonia including viral pneumonia. Cannot rule out vaping associated lung injury. Check MRSA swab, sputum culture, procalcitonin. For now broaden coverage with vancomycin. Add Levaquin. Continue with Zosyn. For concerns of possible mold at home check beta D glucan, LDH, Aspergillus PCR. Will treat with high-dose steroids. Solu-Medrol 40 mg twice daily. Given concerns of uncontrolled hypertension since age of 16. IV Lasix 40 mg stat. Will dose on a daily basis. Plan for net negative of 2 L. Strict input output charting, daily weights. Echocardiogram. Status: Acute (2) Pneumonia: Keep saturation over 88%. Transition over to high flow nasal cannula. BiPAP nightly. Cannot rule out a component of sleep apnea. Status: Acute (3) Elevated d-dimer: Status: Acute Plan Appreciate pulmonology recommendations. Hypertension: Chronic as per patient and patient's mother. Not on current medication. Supposed to be on lisinopril 20 mg daily. As per the mother has had aggressive work-up with PCP. Will request documents. For now start on metoprolol 25 mg twice daily. Goal blood pressure less than 140/90 on Hg. Full code. Critically ill. Lovenox 40 mg daily. Protonix. Plan for day: Started on Precedex drip. Once on Precedex drip switch from BiPAP to heated high flow. Out of bed to chair for most most part of the day. Can ambulate in the room with high flow and oxime mask. Continue with oral metoprolol. 1 more dose of IV Lasix today. For now continue with Levaquin and Zosyn. Follow-up sputum culture, pneumocystis and Aspergillus PCR. N.p.o. after midnight for possible bronchoscopy. Severely guarded prognosis. Mother at bedside updated. Attestations Medical Necessity Statement*: Requires further hospitalization for management of acute hypoxic respiratory failure Critical Care Time: The high probability of a clinically significant, sudden or life threatening deterioration of the patient's [pulmonology system(s) required my full and direct attention, intervention and personal management. The critical care time is as shown. This time is in addition to time spent performing any reported procedures but includes the following: [x] Data and vital sign review and interpretation [x] Patient assessment, examination and intervention [x] Documentation [x] Medication orders and management Critical Care Time (min): 90 Coding Level of Care Code Acute Undergraduate Intern for [facility] Diagnoses Acute respiratory failure with hypoxia J96.01 Pneumonia J18.9 Elevated d-dimer R79.89
--- NOTE | 2022-02-08 19:41 | PC.NURSE ---
Pt up in the chair watching television. Pt's mother is at bedside.
[2022-02-08] MEDS: saline nasal spray 44mL Btl 1 SPRAY NASAL (20:17)
--- NOTE | 2022-02-08 20:43 | PC.NURSE ---
Precedex infusing at 0.2 mcg/kg/hr prior to my shift. Dose reflected in MAR incorrect.
[2022-02-08] MEDS: zolpidem 5 mg Tablet PO (22:15)
--- NOTE | 2022-02-08 22:31 | PC.NURSE ---
Heart rate as low as 48 bpm. Precedex decreased. Pt denies anxiety at this time.
--- NOTE | 2022-02-08 22:35 | PC.NURSE ---
Pt does not wish nursing to help him with bathing, but states that he will give himself a bath with bath wipes later tonight.
[2022-02-09] VITALS (53 sets, daily range): BP systolic 105–159; BP diastolic 41–90; PULSE 49–119; RESP 14–35; TEMP 36.2–37; O2SAT 87–97
--- NOTE | 2022-02-09 00:10 | PC.NURSE ---
Pt resting quietly in bed with eyes closed. Respirations are even and unlabored. Pt pink warm and dry.
[2022-02-09] MEDS: ipratropium-albuterol 3 mL Neb INHALATION ×3 (03:03→20:22)
[2022-02-09] MEDS: levoFLOXacin 500 mg Tablet PO (05:23)
[2022-02-09] MEDS: piperacillin-tazobactam 3.375 GM in sodium chloride 0.9% (plus) 50 ML IV (05:23)
[2022-02-09 06:15] LABS: Basophils % 0.1 %; Eosinophils # 0.6 10^3/uL (0.0-0.8); Eosinophils % 2.8 %; Hematocrit 44.3 % (42.0-52.0); Hemoglobin 14.6 g/dL (11.7-16.6); Lymphocytes # 1.8 10^3/uL (1.5-6.5); Lymphocytes % 8.4 %; Mean Corpuscular Hemoglobin 29.1 pg (28.0-34.0); Mean Corpuscular Volume 88.2 fl (80-94); Mean Platelet Volume 11.8 fL (7.4-10.4); Monocytes # 1.8 10^3/uL (0.2-0.9); Monocytes % 8.3 %; Neutrophils # 17.43 10^3/uL (1.8-8.0); Neutrophils % 79.6 %; Nucleated Red Blood Cells % 0 %; Platelet Count 332 10^3/cmm (130-400); Red Blood Count 5.02 10^6/uL (4.1-5.3); Red Cell Distribution Width 13.2 % (12.1-15.1); White Blood Count 21.9 10^3/uL (4.5-13.0)
[2022-02-09 06:35] LABS: Alanine Aminotransferase 22 U/L (0-41); Albumin Level 3.7 g/dL (3.5-5.2); Alkaline Phosphatase 36 IU/L (40-130); Aspartate Amino Transferase 15 U/L (0-40); Blood Urea Nitrogen 20 mg/dL (6-20); Calcium 8.9 mg/dL (8.5-10.5); Carbon Dioxide 29 mmol/L (22-29); Chloride 100 mmol/L (98-107); Globulin 2.8 g/dL (1.3-4.6); Glomerular Filtration Rate 143.8 mL/min (90-130); Glucose 115 mg/dL (65-115); Osmolality Calculated 292 mOsm/kg (285-295); Sodium 139 mmol/L (136-145); Total Bilirubin 0.2 mg/dL (0.15-1.2); Total Protein 6.5 g/dL (6.6-8.7)
[2022-02-09] MEDS: escitalopram 10 mg Tablet PO (08:23)
[2022-02-09] MEDS: metoprolol tartrate 25 mg Tablet PO ×2 (08:23→21:19)
[2022-02-09] MEDS: pantoprazole DR 40 mg Tablet PO (08:23)
[2022-02-09] MEDS: budesonide 0.5 mg/2 mL Neb INHALATION (08:41)
--- NOTE | 2022-02-09 08:56 | PC.NURSE ---
Patient got up to bed with standby assist, AOx4, tolerating HHF at this time
--- NOTE | 2022-02-09 09:54 | PC.NURSE ---
Dr. Meehan informed this nurse and patient Dr. Reyna will perform Bronch today
--- NOTE | 2022-02-09 10:42 | PC.CHAP ---
Pastoral Care Encounter/Spiritual Assessment Type of Contact [] Declined pulverizer tender visit [] Patient/Family/Request visit [] Outpatient visit [] Follow-up visit [] Physician referral [] Code/Alert [x] Routine visit [] Staff referral [] Actively dying [] Patient sleeping [] Family support [] [] Out of room [] Palliative care [] [] Receiving care in room [] Pre-surgical visit [] Trauma [] Long length of stay [x] ICU visit [x] Other: setting in chair... 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 Interventions [x] Prayer [] Active listening [] Non-anxious presence [] Spiritual/emotional support [] Crisis/trauma care [] Spiritual counseling [] Bereavement support [] Provided bereavement packet [] Provided Bible/devotional materials [] Provided toy/stuffed animal, coloring book to patient or family member [] Provided Communion [] Anointing/[place] [] Salvation [x] Completed spiritual assessment [] Other: Impact on Illness or Injury [] Angry [] Fearful [] Anxious [] Often cries [] Exhaustion [] Unable to work [] Unable to attend methodist [] Unable to walk/stand [] Unable to read [] Unable to drive [] Unable to eat/drink [] Unable to sleep [] Unable to be with family [] Patient intubated [] Other: Summary Time spent with patient
--- NOTE | 2022-02-09 10:47 | P.ANESASSM_ITS ---
Pre-Anesthetic Assessment Height/Weight: Height 1.83 m Weight 118.977 kg Temp Pulse Resp BP Pulse Ox 97.2 F L 99 21 H 139/70 94 02/09/22 04:00 02/09/22 10:00 02/09/22 10:00 02/09/22 10:00 02/09/22 10:00 Preop Diagnosis: Pneumonia Operation Date: 02/09/22 13:00 Proposed Procedures p Bronchoscopy(Not Applicable) - Biplab MD Axel Familial anesthetic complications: None Was Beta Nyla taken within 24 hours: N/A Was Clonidine taken within 24 hours: N/A Social No alcohol and No tobacco Exam alert, oriented x 3 and regular rate & rhythm breath sounds course b/l Airway Submandibular: within normal limits Cervical ROM: within normal limits Mallampati: Class III Dentition: full History/ROS No significant complaints Pulmonary Pneumonia on high flow NC 50% FiO2 Acute respiratory failure w/ hypoxia CV/HEM Hypertension TTE 01/2022 CONCLUSIONS ?1. Normal left ventricular size, systolic function and wall ?thickness, with no regional wall motion abnormalities. Left ?ventricular ejection fraction is estimated at 60 %. Grade I ?diastolic dysfunction (abnormal relaxation filling pattern), ?normal to mildly elevated filling pressures. ?2. Normal right ventricular size and systolic function. ?3. Trace tricuspid valve regurgitation. ?4. No prior similar studies to compare. None reported Hepatic None reported GI None reported Metabolic None reported Musc/skel None reported Neuropsych None reported Anesthetic Plan ASA status: 3 (21 year old male with HTN and acute respiratory failure ) Anesthesia: General and MAC Other: I discussed with the patient risks, goals, and benefits of MAC and general anesthesia. We discussed spectrum of MAC anesthesia including conversion to general with tx to ICU on ventilator as well as possibility of recall of intraoperative stimuli including discomfort/pain. Patient agrees to proceed with MAC. Plan maintenance of SV with HFNC in place on 100% FiO2 for procedural sedation. Risk of > 500 ml blood loss (7ml/kg in children): No Medications/Allergies Home Medications Medication Instructions Recorded Confirmed Last Taken Type lisinopril 20 mg tablet 20 mg PO DAILY 07/24/21 02/06/22 1 Month Ago History ~01/06/22 see pharmacy comment ibuprofen 200 mg tablet 800 mg PO Q6H PRN 02/06/22 02/06/22 02/06/22 History Allergies Allergy/AdvReac Type Severity Reaction Status Date / Time No Known Allergies Allergy Verified 02/06/22 09:26 Current Medications Generic Name Dose Route Start Last Admin Trade Name Gavinoq PRN Reason Stop Dose Admin Acetaminophen 650 mg 02/06/22 13:50 02/07/22 05:12 Acetaminophen 325 Mg Tablet PO 650 mg Q6H PRN Administration Mild/Mod Pain Or Temp >/= 101 Albuterol/Ipratropium 3 ml 02/06/22 21:00 02/09/22 08:41 Ipratropium-Albuterol 3 Ml Neb INHALATION 3 ml Q6H.RESPIRATORY GEOVANNA Administration Alprazolam 0.5 mg 02/06/22 17:02 02/07/22 22:35 Alprazolam 0.5 Mg Tablet PO 0.5 mg Q6H PRN Administration ANXIETY Benzonatate 200 mg 02/06/22 15:52 02/06/22 16:13 Benzonatate 100 Mg Capsule PO 200 mg TID PRN Administration COUGH Budesonide 0.5 mg 02/06/22 20:00 02/09/22 08:41 Budesonide 0.5 Mg/2 Ml Neb INHALATION 0.5 mg BID.RESPIRATORY GEOVANNA Administration Enoxaparin Sodium 40 mg 02/06/22 15:00 02/08/22 14:13 Enoxaparin 40 Mg/0.4 Ml Syringe SUBCUT 40 mg Q24H GEOVANNA Administration Escitalopram Oxalate 10 mg 02/08/22 09:45 02/09/22 08:23 Escitalopram 10 Mg Tablet PO 10 mg DAILY GEOVANNA Administration Piperacillin Sod/Tazobactam 50 mls @ 12.5 mls/hr 02/06/22 14:00 02/09/22 05:23 Sod 3.375 gm/ Sodium Chloride IV 12.5 mls/hr Q8H GEOVANNA Administration dexmedeTOMIDine 0.9 % NaCL 400 mcg in 100 mls @ 0 mls/hr 02/08/22 09:45 02/09/22 00:03 Precedex IV 0 mcg/kg/hr .Q0M GEOVANNA 0 mls/hr Titration Protocol Per Protocol Levofloxacin 500 mg 02/07/22 10:30 02/09/22 05:23 Levofloxacin 500 Mg Tablet PO 500 mg DAILY@0600 GEOVANNA Administration Protocol Methylprednisolone Sodium Succinate 40 mg 02/07/22 23:00 02/09/22 06:09 Methylprednisolone Sod Succ 125 Mg/2 Ml Inj IVP 40 mg Q8H GEOVANNA Administration Metoprolol Tartrate 25 mg 02/07/22 21:00 02/09/22 08:23 Metoprolol Tartrate 25 Mg Tablet PO 25 mg BID@0900,2100 GEOVANNA Administration Morphine Sulfate 2 mg 02/07/22 18:09 02/08/22 08:38 Morphine 4 Mg/Ml Sdv 1 Ml IVP 2 mg Q4H PRN Administration SEVERE PAIN Pantoprazole Sodium 40 mg 02/07/22 09:00 02/09/22 08:[address] 40 Mg Tablet PO 40 mg DAILY GEOVANNA Administration Sodium Chloride 1 spray 02/08/22 07:10 02/08/22 20:17 Saline Nasal Bracey 44ml Btl NASAL 1 spray PRN PRN Administration DRYNESS PFSH Anesthesia Medical History Hypertension Surgical History History of oral surgery teeth Hx of appendectomy Family History Other Hypertension Social History Smoking and tobacco status: current every day smoker Alcohol intake: never Substance/Drug Use: never 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[employer], 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 Data Anesthesia : 02/09/22 05:40 02/09/22 05:40 Short CBC 02/08/22 02/09/22 Range/Units 05:05 05:40 WBC 21.2 H 21.9 H (4.5-13.0) 10^3/uL Hgb 14.7 14.6 (11.7-16.6) g/dL Hct 43.3 44.3 (42.0-52.0) % MCV 87.7 88.2 (80-94) fl Plt Count 301 332 (130-400) 10^3/cmm Neut % (Auto) 90.1 79.6 % Neut # (Auto) 19.14 H 17.43 H (1.8-8.0) 10^3/uL BMP 02/08/22 02/09/22 05:05 05:40 Sodium 138 139 Potassium 4.0 4.0 Chloride 102 100 Carbon Dioxide 25 29 BUN 14 20 Creatinine 0.6 L 0.7 Glucose 138 H 115 Calcium 9.0 8.9 Cardiac Enzymes 02/07/22 Range/Units 04:45 NT-Pro-B Natriuret Pep 87 (0-125) pg/mL Liver Function 02/08/22 02/09/22 Range/Units 05:05 05:40 Total Bilirubin 0.3 0.2 (0.15-1.2) mg/dL AST 9 15 (0-40) U/L ALT 11 22 (0-41) U/L Alkaline Phosphatase 31 L 36 L (40-130) IU/L Albumin 3.5 3.7 (3.5-5.2) g/dL Coags 02/08/22 05:05 C-Reactive Protein 73.8 H Microbiology 02/06/22 14:00 Gram Stain - Final Sputum - Expectorated Sputum Sputum Culture - Final Cardiac Studies: Echocardiogram 02/07/22
--- NOTE | 2022-02-09 12:30 | PC.NURSE ---
Patient off unit with GI lab staff for Bronchoscopy, family at bedside
[2022-02-09] MEDS: sodium chloride 0.9% 1,000 ML 30 ML IV (12:50)
[2022-02-09] MEDS: lidocaine 1% INJ 20 mL XX (13:12)
--- NOTE | 2022-02-09 13:35 | PM.PACU ---
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
--- NOTE | 2022-02-09 13:39 | PC.NURSE ---
back from Bronch, patient AO x4, no c/o at this time, family at bedside
--- NOTE | 2022-02-09 13:41 | PM.OP ---
Operative Report Date of procedure: February 09, 2022 Pre-op diagnosis: Preop Diagnosis multifocal pneumonia Post-op diagnosis: Same Brief History: This is a 29-year-old young male who presented to the hospital with multifocal infiltrate, hypoxic respiratory failure in the setting of recent initiation of smoking, vaping. Procedure: Name of the procedure: Bronchoscopy with inspection of the airway, bronchoalveolar lavage, and control of bleeding. Indication: Multifocal infiltrate Anesthesia: Monitored anesthesia care Local anesthesia: The vocal cords, trachea, jacky in the right and left mainstem bronchi were anesthetized with 1% lidocaine, 6 mL. Description of the procedure: The procedure was explained to the patient and the consent was obtained. The patient was brought to the endoscopy suite. Monitored anesthesia care was provided by the anesthesia team. Following induction of anesthesia, the bronchoscope was advanced through the mouth. The vocal cords appeared to be normal. The vocal cords anesthetized with 1% lidocaine, 3 mL was used. The bronchoscope was passed through the vocal cords under direct visualization. The upper and lower trachea appeared to be normal other than being erythematous. The trachea, jacky, right and left mainstem bronchi were incised with 1% lidocaine. The jacky was sharp. In a systematic manner bilateral bronchial tree was then examined. The bronchoscope was advanced into the left mainstem bronchus. The left upper lobe, lingula and left lower lobe bronchi were examined up to the third subsegmental level and no abnormalities were identified. The bronchoscope was then introduced into the right mainstem bronchus. The right upper lobe, right middle lobe and right lower lobe bronchi were examined up to the third subsegmental level and no abnormalities were identified. There was airway erythema throughout the lung. No airway ulceration or mucus was noted. Bronchoalveolar lavage was performed from the medial segment of the right middle lobe. Under 20 mL of saline was instilled in total into installations fluid return was 30 mL. The fluid was cloudy. Samples: 1. Bronchoalveolar lavage specimen was sent for cell count and differential, Gram stain and culture, fungal stain and culture, AFB stain and culture, histoplasma antigen, viral PCR, cytology. Complications: There was no immediate complications.
--- NOTE | 2022-02-09 13:49 | P.PN_ITS ---
Subjective Subjective: Patient was seen and examined. He is doing significantly better than how he did over the weekend. The patient appears to be comfortable. He is on high flow nasal cannula with 40% FiO2 and the saturation is in the mid to high 90s. He did undergo bronchoscopic evaluation later in the day. There is no evidence of diffuse alveolar hemorrhage. He tolerated the procedure well Vitals/I&O/Wt Last Vital Signs Temp 98.1 F 02/09/22 12:38 Pulse 77 02/09/22 13:34 Resp 18 02/09/22 13:34 BP 134/76 02/09/22 12:38 Pulse Ox 90 02/09/22 13:34 02/08/22 02/09/22 02/09/22 22:59 06:59 14:59 Intake Total 61.497 / 361.497 555.424 / 916.921 Output Total 1850 / 1850 350 / 2200 Balance -1788.503 / -1488.503 205.424 / -1283.079 Weight last 48 hrs Weight 262 lb 4.8 oz Weight 253 lb 8 oz Physical Exam Narrative: General: Patient is awake alert and oriented, in no distress today Neck: No JVD Respiratory: Auscultation: Clear to auscultation bilaterally, no wheezing or rhonchi Cardiovascular: Regular rate and rhythm, S1-S2 present, no murmur, no peripheral edema. Abdomen: Soft, nontender, distended from obesity, positive bowel sound Musculoskeletal: No obvious joint deformity Skin: No rash Neuro: Mental status is normal, no gross cranial nerve deficit, normal gross motor function Data : 02/09/22 05:40 02/09/22 05:40 Micro: Microbiology 02/06/22 14:00 Gram Stain - Final Sputum - Expectorated Sputum Sputum Culture - Final Other data: I have reviewed the patient's laboratory, microbiologic and rheologic data. The sputum culture has been negative so far. The white count is stable. A&P Assessment and plan (1) Acute respiratory failure with hypoxia: The patient is suffering from acute hypoxic respiratory failure in the setting of multilobar infiltrate. The etiology of the pulmonary infiltrate is unclear at this time. The patient gives history of recently starting smoking which can be associated with acute eosinophilic pneumonia. However, the patient also vapes and EVALI is also a possibility. His procalcitonin level is normal. However, atypical pneumonia including viral pneumonia can have normal procalcitonin level. COVID-19 has certainly be of concern however the patient is vaccinated as well as had 2 negative PCR's. There is no evidence of hematuria or alveolar hemorrhage although diffuse alveolar hemorrhage can occur in the absence of hemoptysis. There is no RBC casts in the urine. The patient is doing much better today. He has undergone bronchoscopic evaluation which ruled out diffuse alveolar hemorrhage. The cytology will help us establish diagnosis of the EVALI. This particular entity is associated with lipid-laden macrophages. The bronchoscope will also include an extensive microbiologic work-up. The cell count may point towards a diagnosis of acute eosinophilic pneumonia however after getting steroid in BAL eosinophil count greater than 25% may not be there anymore. In any case, the patient is making progress. Status: Acute (2) Pneumonia: Please see above. Status: Acute (3) Hypertension: The patient was diagnosed with hypertension at the age of 16. His mom told me that he had undergone an extensive work-up. He was worked up by Dr. Coleman in [place]. His blood pressure is under control currently. Status: Acute Attestations Medical Necessity Statement*: Will defer to the primary team Coding Level of Care Code Acute Production Troubleshooter for [facility] Diagnoses Acute respiratory failure with hypoxia J96.01 Pneumonia J18.9 Hypertension I10
[2022-02-09 14:06] LABS: Cyto Order Verification Order Verified
--- NOTE | 2022-02-09 14:06 | ANE.PACU2 ---
Inpatient post-anesthesia follow up: Airway intact: Yes Vital signs: Temperature 98.1 F Pulse Rate [Curren t] 77 Pulse Rate 88 Respiratory Rate [ Current] 18 Respiratory Rate 16 Blood Pressure 134/76 Pulse Oximetry [Cu rrent] 90 Pulse Oximetry 96 Oxygen Delivery Me thod Oxymask Oxygen Flow Rate [ Current] 25 Oxygen Flow Rate 5 Fraction of Inspir ed Oxygen [ 50 Current] Fraction of Inspir ed Oxygen 55 Hydration adequate: Yes Nausea and vomiting: No Pain level: 1 Mental status: Baseline
--- NOTE | 2022-02-09 14:11 | P.PN_ITS ---
Subjective Subjective: Seen this morning. Patient is feeling a lot better and is on high flow. Saturating well. Plan is to go for bronchoscopy today. Family member at bedside. All questions answered. Vitals/I&O/Wt Last Vital Signs Temp 98.1 F 02/09/22 12:38 Pulse 77 02/09/22 13:34 Resp 18 02/09/22 13:34 BP 134/76 02/09/22 12:38 Pulse Ox 90 02/09/22 13:34 02/08/22 02/09/22 02/09/22 22:59 06:59 14:59 Intake Total 61.497 / 361.497 555.424 / 916.921 Output Total 1850 / 1850 350 / 2200 Balance -1788.503 / -1488.503 205.424 / -1283.079 Weight last 48 hrs Weight 118.977 kg Weight 114.986 kg Physical Exam Narrative: General exam is a white male, no acute respiratory distress, on high flow oxygen.? HEENT: Atraumatic and normocephalic.? Oropharynx clear. Cardiovascular RRR, normal s1, s2, no murmur Lungs few crackles bibasilar.? No wheezing, no gross roncho Abdomen is soft nontender positive bowel sounds.? No obvious organomegaly exams deferred Extremities no cyanosis clubbing or edema, cap refill brisk Skin no rash Neuro no focal deficits Data : 02/09/22 05:40 02/09/22 05:40 Micro: Microbiology 02/06/22 14:00 Gram Stain - Final Sputum - Expectorated Sputum Sputum Culture - Final A&P Assessment and plan (1) Hypertension: Status: Acute (2) Acute respiratory failure with hypoxia: Status: Acute (3) Pneumonia: Status: Acute (4) Elevated d-dimer: Status: Acute Plan #Acute respiratory failure with hypoxia #Pneumonia -Multilobar infiltrate bilaterally on CT scan -COVID-19 PCR negative x2 -High suspicion of allergic pneumonitis versus atypical pneumonia including viral pneumonia. Cannot rule out vaping associated lung injury ? Check MRSA nares, sputum culture, procalcitonin -Continue vancomycin Levaquin Zosyn -Solu-Medrol 40 twice daily -Echo pending -BiPAP nightly -Bronchoscopy today. -Continue metoprolol 25 twice daily. -Bradycardia overnight. We will stop Precedex drip. Patient doing better today. Full code lovenox 40 daily counselled on vaping and smoking cessation Attestations Medical Necessity Statement*: bronchoscopy today till on high flow Coding Level of Care Code Acute Emergency Room Technician for [facility] Diagnoses Hypertension I10 Acute respiratory failure with hypoxia J96.01 Pneumonia J18.9 Elevated d-dimer R79.89
[2022-02-09 15:45] LABS: Apprearance, Bronch Wash Cloudy (CLEAR); Color, Bronc Wash White; Total Cells Counted Bronch 200
[2022-02-09 15:48] LABS: Bronch Source Right Middle Lobe; Other Cells, Bronch Wash 10 %
[2022-02-09 15:52] LABS: PATH Referral Yes
--- NOTE | 2022-02-09 18:27 | PC.NURSE ---
C/O intense itiching in mouth and face, airway unobstructed no swelling noted. Dr. Meehan gave T.O. for 25 mg IV Benadryl now
[2022-02-09] MEDS: diphenhydrAMINE 50 mg/mL SDV 1mL 25 MG IVP (19:15)
[2022-02-10] VITALS (54 sets, daily range): BP systolic 97–153; BP diastolic 39–93; PULSE 60–103; RESP 15–34; TEMP 36.4–36.8; O2SAT 89–98
[2022-02-10] MEDS: temazepam 15 mg Capsule PO (00:32)
--- NOTE | 2022-02-10 02:20 | PC.NURSE ---
Pt. states he is having tingling and numbness in lips and mouth. NO visible issues present. Pt. states he feels like his face is swelling. Called dr. Jiang and informed him. Received orders for iv benadryl. Will administered as ordered.
[2022-02-10] MEDS: diphenhydrAMINE 50 mg/mL SDV 1mL 25 MG IVP (02:39)
[2022-02-10] MEDS: ipratropium-albuterol 3 mL Neb INHALATION ×4 (03:40→20:18)
[2022-02-10] MEDS: metoprolol tartrate 25 mg Tablet PO ×2 (07:56→20:59)
[2022-02-10] MEDS: escitalopram 10 mg Tablet PO (07:57)
[2022-02-10] MEDS: levoFLOXacin 500 mg Tablet PO (07:57)
[2022-02-10] MEDS: pantoprazole DR 40 mg Tablet PO (07:57)
[2022-02-10] MEDS: predniSONE 20 mg Tablet 40 MG PO (07:57)
--- NOTE | 2022-02-10 11:03 | P.PN_ITS ---
Subjective Subjective: The patient was seen and examined this morning. He was resting comfortably in bed. Cell count from bronchoalveolar lavage yesterday revealed elevated eosinophil count at 36% consistent with a diagnosis of acute eosinophilic pneumonia. The patient is currently on Levaquin and prednisone 40 mg. Vitals/I&O/Wt Last Vital Signs Temp 98.3 F 02/10/22 04:30 Pulse 77 02/10/22 10:30 Resp 23 H 02/10/22 10:00 BP 119/67 02/10/22 10:30 Pulse Ox 95 02/10/22 10:30 02/09/22 02/10/22 02/10/22 22:59 06:59 14:59 Intake Total 360 / 360 Output Total 1800 / 1800 300 / 300 Balance -1800 / -1800 60 / 60 Weight last 48 hrs Weight 262 lb 4.8 oz Physical Exam Narrative: General: Patient is awake alert and oriented, in no distress today Neck: No JVD Respiratory: Auscultation: Clear to auscultation bilaterally, no crackles, wheezing or rhonchi Cardiovascular: Regular rate and rhythm, S1-S2 present, no murmur, no peripheral edema. Abdomen: Soft, nontender, distended from obesity, positive bowel sound Musculoskeletal: No obvious joint deformity Skin: No rash Neuro: Mental status is normal, no gross cranial nerve deficit, normal gross motor function Data : 02/09/22 05:40 02/09/22 05:40 Micro: Microbiology 02/09/22 13:16 Gram Stain - Final Lung Right Middle Lobe Bronchial Washings Culture - Preliminary Other data: I have reviewed his laboratory, microbiologic and radiologic data. The b ronchoalveolar lavage gram stain revealed no organisms. The cultures been negative so far. 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 His bronchoalveolar fluid eosinophil count was 36% consistent with a diagnosis of AEP. Likely etiology is recent smoking. A component of vaping induced acute eosinophilic pneumonia cannot also be ruled out. I am waiting for the cytology result to see whether the patient has evidence of lipid-laden macrophages. The patient is ready for transfer to the floor. We will continue with 40 mg of prednisone daily for a couple of weeks followed by tapering over the next 2 weeks. I have encouraged the patient do not smoke or vape anymore. Status: Acute (2) Acute respiratory failure with hypoxia: The etiology of the acute hypoxic respiratory failure is acute eosinophilic pneumonia. I expect full recovery. He is probably going to be ready for discharge tomorrow. Status: Acute (3) Hypertension: The patient was diagnosed with hypertension at the age of 16. His mom told me that he had undergone an extensive work-up. He was worked up by Dr. Coleman in [place]. His blood pressure is under control currently. I will follow-up with him as outpatient. 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
--- NOTE | 2022-02-10 11:03 | XR_ITS ---
WS: [id number] Exam: XR chest 1V [id number] Date/Time of Exam: 02/10/2022 11:07 AM Reason For Exam: Respiratory failure Comparison 02/08/2022. Bilateral pulmonary infiltrates show significant improvement since prior study. The lungs remain full y inflated. No pleural effusions. Heart size is within normal limits for technique. The mediastinal s ilhouette appears normal. Bony structures are intact. XR/XR chest 1V [id number] IMPRESSION: 1. Bilateral pulmonary infiltrates showing significant improvement since the la st exam.
--- NOTE | 2022-02-10 12:49 | PM.PN ---
Subjective Subjective: Seen this morning. Patient states he is doing a lot better. On 7 L nasal cannula. Vitals/I&O/Wt Last Vital Signs Temp 98.3 F 02/10/22 04:30 Pulse 77 02/10/22 10:30 Resp 23 H 02/10/22 10:00 BP 119/67 02/10/22 10:30 Pulse Ox 95 02/10/22 10:30 02/09/22 02/10/22 02/10/22 22:59 06:59 14:59 Intake Total 360 / 360 Output Total 1800 / 1800 300 / 300 Balance -1800 / -1800 60 / 60 Weight last 48 hrs Weight 118.977 kg Physical Exam Narrative: General exam is a white male, no acute respiratory distress, on high flow oxygen.? Cardiovascular RRR, normal s1, s2, no murmur Lungs:Clear to auscultation bilaterally, no crackles, wheezing or rhonchi, mild crackles at bases. Abdomen is soft nontender positive bowel sounds.? No obvious organomegaly exams deferred Extremities no cyanosis clubbing or edema, cap refill brisk Skin no rash Neuro no focal deficits Data : 02/09/22 05:40 02/09/22 05:40 Micro: Microbiology 02/09/22 13:16 Gram Stain - Final Lung Right Middle Lobe Bronchial Washings Culture - Preliminary A&P Assessment and plan (1) Acute eosinophilic pneumonia: Status: Acute (2) Hypertension: Status: Acute (3) Acute respiratory failure with hypoxia: Status: Acute (4) Pneumonia: Status: Acute (5) Elevated d-dimer: Status: Acute (6) Acute eosinophilic pneumonia: Status: Acute Plan #Acute respiratory failure with hypoxia #Acute eosinophillic pneumonia -Multilobar infiltrate bilaterally on CT scan -COVID-19 PCR negative x2 -His bronchoalveolar fluid eosinophil count was 36% consistent with a diagnosis of AEP. ? Cytology pending BAL -Continue on prednisone 40 daily with prolonged taper. - Counselled pt on smoking and vaping cessation. -Continue metoprolol 25 twice daily. -Pt to follow with Dr. Reyna outpatient at pulm clinic. Transfer to floor today. Full code lovenox 40 daily counselled on vaping and smoking cessation Attestations Medical Necessity Statement*: Needs in hospital monitoring today. On 7L NC. Continue current tx for acute eosinophillic pneumonia. Potential DC in AM. 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
[2022-02-10] MEDS: enoxaparin 40 mg/0.4 mL Syringe SUBCUT (14:18)
--- NOTE | 2022-02-10 19:07 | PC.NURSE ---
Pt has been ambulating around unit with family member at his side.
[2022-02-11] VITALS (26 sets, daily range): BP systolic 94–149; BP diastolic 50–80; PULSE 51–97; RESP 16–18; TEMP 36.6–36.9; O2SAT 86–98
[2022-02-11] MEDS: ipratropium-albuterol 3 mL Neb INHALATION ×2 (03:24→08:11)
--- NOTE | 2022-02-11 07:56 | P.DS_ITS ---
Discharge Providers Date of Admission: 02/06/22 11:47 Date of Discharge: February 11, 2022 Attending Provider at Admission: Chago Howe MD Attending Provider at Discharge: Jacklyn Meehan MD Diagnoses at Discharge Discharge Diagnosis (1) Hypertension: Status: Acute (2) Acute respiratory failure with hypoxia: Status: Acute (3) Pneumonia: Status: Acute (4) Elevated d-dimer: Status: Acute (5) Acute eosinophilic pneumonia: Status: Acute Reason for Visit Reason for Visit: RESPIRATORY DISTRESS Brief History: Shahzad Vasquez is a 21 year old male presents with history of shortness of breath, cough, some ill-defined chest discomfort for the last 3 days.? He believes he has had a fever at home, manifested by chills.? Cough is productive of some yellowish sputum but no blood.? He has not taken his temperature.? He denies any recent travel, ill contacts.? He reports he smokes, but does not really have any other inhalant usually.? He reports he will occasionally vape, b ut it is extremely rare.? He believes he might have vaped at 1 time in the last week.? No vomiting, no diarrhea.? Denies any repetitive lung infections in the past.? States he is vaccinated for COVID.? He brings a card and shows me that he got vaccinated in February and March 2021.? He denies ever having COVID.? 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 Denies any environmental exposures that he can think of.? Thin ks he might have mold at his house but is not sure.? He does have a history of hypertension, and typically takes lisinopril 1 or 2 months ago when he felt his blood pressure was better. Hospital Course Hospital Course Patient was admitted with acute hypoxic respiratory failure. Multilobar infiltrate bilaterally on CT scan. COVID PCR negative x2. He was taken for bron which revealed 36% eosinophil count. He was diagnosed with acute eosinophilic pneumonia. Patient is recommended the patient's stop smoking and stop vaping. Patient was discharged home on prednisone 40 daily for 2 weeks. He will end up with a prolonged taper however his acid plant helper will further taper the dose once he is seen within [address] Reyna was on board during his hospital stay. Patient was also covered with antibiotics for 7 days of Levaquin at discharge. On day of discharge home oxygen evaluation was done and he did not qualify for any. He was discharged home in stable condition. All questions answered. He is to follow-up with his primary care doctor as an outpatient and pulmonology within 2 weeks. Patient does not remember the name of his primary care doctor but says it is 1 of those each [facility] and [place]. He states he will follow-up there within 4 to 7 days of discharge. Physical Exam Narrative: General exam is a white male, no acute respiratory distress, on room air at this time. Cardiovascular RRR, normal s1, s2, no murmur Lungs:Clear to auscultation bilaterally, no crackles, wheezing or rhonchi, Abdomen is soft nontender positive bowel sounds.? No obvious organomegaly exams deferred Extremities no cyanosis clubbing or edema, cap refill brisk Skin no rash Neuro no focal deficits Discharge Data Studies Completed and Pending Completed Studies During Hospitalization Category Date Time Status CT angio chest PE protcl [id number] Stat Cat Scan 02/06/22 11:22 Completed CXRP [XR chest 1V portable [id number]] Routine Exams 02/07/22 12:39 Completed XR chest 1V [id number] Routine Exams 02/10/22 11:03 Completed XR chest 1V portable [id number] Routine Exams 02/08/22 06:00 Completed XR chest 1V portable [id number] Stat Exams 02/06/22 09:10 Completed CV. echo complete* [id number] Routine Ultrasound 02/07/22 09:22 Completed Pending at discharge Category Date Time Status 1-3 Beta D Glucan [Fungitell Glucan Assay (Blood)] Lab 02/07/22 14:17 Received Routine Aspergillus DNA Qualitativ PCR Routine Lab 02/07/22 14:17 Received Blood Culture Stat Lab 02/06/22 10:38 Results Bronch Washing Culture & GS Routine Lab 02/09/22 13:16 Results Fungal Culture not HR/SK/BL Routine Lab 02/09/22 13:16 Received Miscellaneous Test Routine Lab 02/09/22 12:57 Ordered Mycobacteria, Culture w/Fluor Routine Lab 02/09/22 13:16 Received Pneumocystis jirovecii, QT PCR Routine Lab 02/07/22 20:58 Received Respiratory Viral Panel PCR Routine Lab 02/09/22 13:00 Ordered Urine Eosinophils Routine Lab 02/07/22 Ordered Cytology [PTH] Routine Pth 02/09/22 13:08 Received Radiology Impressions Chest CTA 02/06/22 11:22 IMPRESSION: 1. No pulmonary artery embolism identified. 2. Numerous mildly prominent mediastinal lymph nodes felt to be reactive. 3. Small bilateral pleural effusions with compressive atelectasis. 4. Bilateral irregular areas of ground-glass opacity, lung consolidation, and interstitial thickening. Findings can be seen with organizing pneumonia, hypersensitivity pneumonitis, and acute lung injury. Imaging features can be seen with COVID-19 pneumonia, though are nonspecific and can occur with a variety of infectious and noninfectious processes. (Reference: Endy) 5. Pulmonary vascular congestion. 6. Pulmonary interstitial edema. REFERENCES: Endy Sandoval, et al., Radiological Society of [place] Expert Consensus Statement on Reporting Chest CT Findings Related to COVID-19. Endorsed by the Society of Thoracic Radiology, the [place] [employer], and RSNA. Published November 15, 2019. Chest X-Ray 02/10/22 11:03 IMPRESSION: 1. Bilateral pulmonary infiltrates showing significant improvement since the last exam. Laboratory Results WBC 21.9 10^3/uL (4.5-13.0) H 02/09/22 05:40 RBC 5.02 10^6/uL (4.1-5.3) 02/09/22 05:40 Hgb 14.6 g/dL (11.7-16.6) 02/09/22 05:40 Hct 44.3 % (42.0-52.0) 02/09/22 05:40 MCV 88.2 fl (80-94) 02/09/22 05:40 MCH 29.1 pg (28.0-34.0) 02/09/22 05:40 MCHC 33.0 g/dL (30.0-36.0) 02/09/22 05:40 RDW 13.2 % (12.1-15.1) 02/09/22 05:40 Plt Count 332 10^3/cmm (130-400) 02/09/22 05:40 MPV 11.8 fL (7.4-10.4) H 02/09/22 05:40 Neut % (Auto) 79.6 % 02/09/22 05:40 Lymph % (Auto) 8.4 % 02/09/22 05:40 [place] % (Auto) 8.3 % 02/09/22 05:40 Eos % (Auto) 2.8 % 02/09/22 05:40 Baso % (Auto) 0.1 % 02/09/22 05:40 Neut # (Auto) 17.43 10^3/uL (1.8-8.0) H 02/09/22 05:40 Lymph # (Auto) 1.8 10^3/uL (1.5-6.5) 02/09/22 05:40 [place] # (Auto) 1.8 10^3/uL (0.2-0.9) H 02/09/22 05:40 Eos # (Auto) 0.6 10^3/uL (0.0-0.8) 02/09/22 05:40 Baso # (Auto) 0.0 10^3/uL (0.0-0.1) 02/09/22 05:40 Nucleated RBC % (auto) 0 % 02/09/22 05:40 Total Counted Cancelled 02/09/22 13:16 Nucleated RBCs # 0.0 /100WBC 02/09/22 05:40 D-Dimer 5.74 ug/mIFEU (0-0.59) H 02/06/22 10:40 Specimen Type Arterial 02/06/22 09:27 Sample Site Brachial, left 02/06/22 09:27 ABG pH 7.47 (7.35-7.45) H 02/06/22 09:27 ABG pCO2 30.0 mmHg (35-45) L 02/06/22 09:27 ABG pO2 67.8 mmHg (80.0-100.0) L 02/06/22 09:27 ABG HCO3 21.8 mmol/L (22-26) L 02/06/22 09:27 ABG O2 Saturation 95.0 02/06/22 09:27 ABG Base Excess -0.5 mmol/L (-2.0-2.0) 02/06/22 09:27 Ever Test Pos 02/06/22 09:27 A-a O2 Gradient 5.8 mmHg (5-10) 02/06/22 09:27 Hematocrit 52.8 % (42-52) H 02/06/22 09:27 Hgb O2 Saturation 93.8 % (95-100) L 02/06/22 09:27 Carboxyhemoglobin 1.0 %THgb (0.4-20.1) 02/06/22 09:27 Methemoglobin 0.2 % (0.4-1.5) L 02/06/22 09:27 Total Hemoglobin 17.2 g/dL (14-18) 02/06/22 09:27 Sodium 138.0 mmol/L (131-143) 02/06/22 09:27 Potassium 3.7 mmol/L (3.5-5.0) 02/06/22 09:27 Glucose 96.0 mg/dL (70-115) 02/06/22 09:27 Ionized Calcium 1.1 mmol/L (1.1-1.4) 02/06/22 09:27 O2 Delivery Device Nc 02/06/22 09:27 O2 Liters/Min 4.0 % 02/06/22 09:27 Administrative Fellow ID Cak 02/06/22 09:27 Sodium 139 mmol/L (136-145) 02/09/22 05:40 Potassium 4.0 mmol/L (3.5-5.1) 02/09/22 05:40 Chloride 100 mmol/L (98-107) 02/09/22 05:40 Carbon Dioxide 29 mmol/L (22-29) 02/09/22 05:40 Anion Gap 14.0 (5-19) 02/09/22 05:40 BUN 20 mg/dL (6-20) 02/09/22 05:40 Creatinine 0.7 mg/dL (0.7-1.2) 02/09/22 05:40 GFR Calculation 143.8 mL/min (90-130) H 02/09/22 05:40 Glucose 115 mg/dL (65-115) 02/09/22 05:40 Estimat Average Glucose 108 02/08/22 05:05 Hemoglobin A1c 5.4 % (4.0-6.0) 02/08/22 05:05 Calculated Osmolality 292 mOsm/kg (285-295) 02/09/22 05:40 Calcium 8.9 mg/dL (8.5-10.5) 02/09/22 05:40 Magnesium 2.0 mg/dL (1.7-2.3) 02/07/22 04:45 Iron 38 ug/dL (59-158) L 02/07/22 04:45 TIBC 183 mcg/dl 02/07/22 04:45 % Saturation 20.7 % (20-50) 02/07/22 04:45 Unsat Iron Binding 145 ug/dL (112-347) 02/07/22 04:45 Total Bilirubin 0.2 mg/dL (0.15-1.2) 02/09/22 05:40 AST 15 U/L (0-40) 02/09/22 05:40 ALT 22 U/L (0-41) 02/09/22 05:40 Alkaline Phosphatase 36 IU/L (40-130) L 02/09/22 05:40 Lactate Dehydrogenase 173 U/L (135-225) 02/07/22 14:17 Troponin T Gen 5 ng/L 12 ng/L (0-15) 02/06/22 09:38 C-Reactive Protein 73.8 mg/L (0.0-4.9) H 02/08/22 05:05 NT-Pro-B Natriuret Pep 87 pg/mL (0-125) 02/07/22 04:45 Total Protein 6.5 g/dL (6.6-8.7) L 02/09/22 05:40 Albumin 3.7 g/dL (3.5-5.2) 02/09/22 05:40 Globulin 2.8 g/dL (1.3-4.6) 02/09/22 05:40 Triglycerides 80 mg/dL (0-150) 02/08/22 05:05 Cholesterol 148 mg/dL (0-200) 02/08/22 05:05 LDL Cholesterol, Calc 105 mg/dL (50-129) 02/08/22 05:05 Total VLDL Cholesterol 16 mg/dL (0-30) 02/08/22 05:05 HDL Cholesterol 27 mg/dL (60-100) L 02/08/22 05:05 Cholesterol/HDL Ratio 5.48 mg/dL (1.0-5.00) H 02/08/22 05:05 Procalcitonin 0.13 ng/mL (0-0.5) 02/06/22 09:38 TSH 2.27 uIU/mL (0.27-4.20) 02/06/22 09:38 Urine Color Dark yellow (Yellow) 02/06/22 10:55 Urine Appearance Clear (CLEAR) 02/06/22 10:55 Urine pH 5 (5-7) 02/06/22 10:55 Ur Specific [place] 1.020 (1.005-1.030) 02/06/22 10:55 Urine Protein Neg (Negative) 02/06/22 10:55 Urine Glucose (UA) Norm (Normal) 02/06/22 10:55 Urine Ketones 1+ (Negative) H 02/06/22 10:55 Urine Blood Neg (Negative) 02/06/22 10:55 Urine Nitrate Negative (Negative) 02/06/22 10:55 Urine Bilirubin Neg (Negative) 02/06/22 10:55 Prot Sulfosalicylic Acd Negative (Negative) 02/06/22 10:55 Urine Urobilinogen 1 mg/dL (Negative) H 02/06/22 10:55 Ur Leukocyte Esterase Negative (Negative) 02/06/22 10:55 Urine RBC 0-4 /hpf (0-2) H 02/06/22 10:55 Urine WBC 0-4 /hpf (0-5) H 02/06/22 10:55 Ur Squamous Epith Cells 0-4 /hpf (0-5) H 02/06/22 10:55 Amorphous Sediment Not Reportable 02/06/22 10:55 Urine Bacteria None /hpf (NONE) 02/06/22 10:55 Pleural Color Cancelled 02/09/22 13:16 Pleural Appearance Cancelled 02/09/22 13:16 Pleural WBC Cancelled 02/09/22 13:16 Pleural RBC Cancelled 02/09/22 13:16 Pleural Other Cells Cancelled 02/09/22 13:16 Pleural Polynuclear % Cancelled 02/09/22 13:16 Pleural Mononuclear % Cancelled 02/09/22 13:16 Bronch Specimen Source Right middle lobe 02/09/22 13:16 Bronchial Fluid Color White 02/09/22 13:16 Bronchial Fluid Appearance Cloudy (CLEAR) 02/09/22 13:16 Bronchial Fluid WBC 966 /uL 02/09/22 13:16 Bronchial Fluid RBC 3 10^3/uL 02/09/22 13:16 Bronch Cells Counted 200 02/09/22 13:16 Bronchial Neutrophils 6.00 % (0.9-2.3) H 02/09/22 13:16 Bronchial Lymphocytes 29.00 % (10.71-12.91) H 02/09/22 13:16 Bronchial Eosinophils 35.50 % (0.13-0.25) H 02/09/22 13:16 Bronchial Macrophages 20.00 % (83.6-86.8) L 02/09/22 13:16 Bronchial Other Cells 10 % 02/09/22 13:16 Bronchial Diff Comment Yes 02/09/22 13:16 Vancomycin Trough 11.4 ug/mL (10-15) 02/08/22 09:30 Urine Opiates Screen Negative ng/mL (Negative) 02/06/22 10:55 Ur Barbiturates Screen Negative ng/mL (Negative) 02/06/22 10:55 Ur Phencyclidine Scrn Negative ng/mL (Negative) 02/06/22 10:55 Ur Amphetamines Screen Negative ng/mL (Negative) 02/06/22 10:55 U Benzodiazepines Scrn Negative ng/mL (Negative) 02/06/22 10:55 Urine Cocaine Screen Negative ng/mL (Negative) 02/06/22 10:55 U Marijuana (THC) Screen Negative ng/mL (Negative) 02/06/22 10:55 Coronavirus 229E (PCR) Not detected (NOT DETECT) 02/06/22 13:22 Hepatitis A IgM Ab Non-reactive (Nonreactive) 02/07/22 14:17 Hep Bs Antigen Non-reactive (Nonreactive) 02/07/22 14:17 Hep Bs Antibody 5.3 (11.5-1000) L 02/07/22 14:17 Hep B Core Total Ab Non-reactive (Nonreactive) 02/07/22 14:17 Hepatitis C Antibody Non-reactive (Nonreactive) 02/07/22 14:17 HIV 1&2 Ab & HIV 1 Ag Non-reactive (Non-Reactiv) 02/06/22 09:38 HIV 1&2 Antibody Non-reactive (Non-Reactiv) 02/06/22 09:38 Legionella Source Bronch 02/09/22 13:16 Legionella Antibody Cancelled 02/06/22 16:21 L.pneumophila Antigen TNP 02/09/22 13:16 SARS-CoV-2 (PCR) Not detected (NOT DETECT) 02/06/22 13:22 Path Cons w/Slide Cancelled 02/09/22 13:16 Misc Test Reference Cancelled 02/09/22 13:16 Vitals Last Vital Signs Temp 97.9 F 02/11/22 01:00 Pulse 51 L 02/11/22 03:24 Resp 16 02/11/22 03:24 BP 125/74 02/11/22 05:30 Pulse Ox 98 02/11/22 05:30 Discharge Plan Discharge Patient Disposition: Home Condition: Stable Prescriptions: New prednisone 20 mg Tablet 40 mg PO DAILY 14 Days Qty: 28 0RF pantoprazole 40 mg Tablet,Delayed Release (Dr/Ec) 40 mg PO DAILY 30 Days Qty: 30 0RF levofloxacin 500 mg Tablet 500 mg PO DAILY@0600 7 Days Qty: 7 0RF escitalopram oxalate 10 mg Tablet 10 mg PO DAILY 30 Days Qty: 30 0RF albuterol sulfate 90 mcg/actuation HFA aerosol inhaler 2 inh inhalation Q6H PRN (Reason: shortness of breath or wheezing) 14 Days Qty: 8.5 0RF Held lisinopril 20 mg tablet 20 mg PO DAILY 0RF Hold Instructions: see pcp before resuming Discontinued ibuprofen 200 mg Tablet 800 mg PO Q6H PRN (Reason: Pain) 0RF Discharge Orders: Discharge Order (Routine); Ordered 02/11/22 Ordered By: Jacklyn Meehan Referrals: Tim Reyna MD [Physician] - 7-10 days (This follow up appointment ,has been scheduled for, at 10:00 ) Discharge Diet: Regular Discharge Activity: Increase activity as tolerated and Oxygen as instructed Patient Instructions: Albuterol (By breathing), Prednisone (By mouth), Levofloxacin (By mouth), Pantoprazole (By mouth), Escitalopram (By mouth) (Lexapro), How to Stop Smoking (DC), Simple Eosinophilic Pneumonia (DC), Pneumonia (DC), Electronic Cigarettes and Your Health (GEN), EVALI (E-cigarette or Vaping-Associated Lung Injury) (DC), Opioid Safety Activity Restrictions/Additional Instructions: Please follow up with your primary care doctor within 4-7 days of discharge. Abstain from vaping and smoking including second hand smoke. 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
[2022-02-11] MEDS: escitalopram 10 mg Tablet PO (08:31)
[2022-02-11] MEDS: levoFLOXacin 500 mg Tablet PO (08:32)
[2022-02-11] MEDS: pantoprazole DR 40 mg Tablet PO (08:32)
[2022-02-11] MEDS: predniSONE 20 mg Tablet 40 MG PO (09:35)
--- NOTE | 2022-02-11 11:16 | PC.NURSE ---
Patient discharged. Discharge assessment completed, vitals within normal and charted. Activity, medication, and followup appointment education provided to patient. Discharge packet provided to patient and copy signed. All belongings sent with patient. Patient discharged, ambulated and with mother.
[2022-02-11 12:07] LABS: Aspergillus Source NOT GIVEN
[2022-02-12 17:59] LABS: Fungitell 1-3-B Glucan Assay <31 pg/mL; Interpretation NEGATIVE
[2022-02-15 20:02] LABS: Legionella Specimen Source BAL
== END 2022-02-11 11:18 | disposition home or self-care (01) | DRG 196 ==
LOC: ER 10:28 → ICU 12:28
PROVIDERS: Internal Medicine Critical Care Medicine; Student in an Organized Health Care Education/Training Program; Admitting Provider Internal Medicine; Emergency Provider Family Medicine; Visit Provider Internal Medicine
PROC: 0BJ08ZZ Inspection of Tracheobronchial Tree, Via Natural or Artificial Opening Endoscopic (ICD-10-PCS; CPT 31622; principal; 2022-02-09 13:00)
DX: J82.82 Acute eosinophilic pneumonia (principal); J96.01 Acute respiratory failure with hypoxia; I10 Essential (primary) hypertension; F17.210 Nicotine dependence, cigarettes, uncomplicated; F17.290 Nicotine dependence, other tobacco product, uncomplicated; U07.0 Vaping-related disorder; F41.9 Anxiety disorder, unspecified
CPT/HCPCS: 31624; 36415; 71045; 71275; 80051; 80053; 80061; 80202; 80306; 80503; 81001; 82330; 82805; 83036; 83540; 83550; 83615; 83735; 83880; 84145; 84443; 84484; 85025; 85378; 86140; 86403; 86606; 86705; 86706; 86709; 86803; 87015; 87040; 87070; 87102; 87116; 87205; 87206; 87278; 87340; 87385; 87449; 87635; 87641; 87798; 87799; 87801; 87806; 88108; 88305; 89050; 93306; 94640; 94660; 96365; 96367; 96372; 96375; 99285; J0456; J1100; J1200; J1650; J1940; J2060; J2270; J2543; J2704; J2930; J3370; J3490; J7030; J7050; J7512; J7626; Q9967

== ENCOUNTER → 2022-02-19 09:54 | Outpatient (BNVA) | payer MEDICAID, SELFPAY | PROVIDERS: Visit Provider Internal Medicine Critical Care Medicine | DX: Z09 Encounter for follow-up examination after completed treatment for conditions other than malignant neoplasm (principal); J82.82 Acute eosinophilic pneumonia; I10 Essential (primary) hypertension; Z87.891 Personal history of nicotine dependence | CPT/HCPCS: 99214 ==

== ENCOUNTER 2022-02-19 12:06 | Outpatient (CLI) | payer MEDICAID, SELFPAY ==
--- NOTE | 2022-02-19 12:14 | XR_ITS ---
WS: [id number] XR chest 2V* [id number] REASON FOR EXAM: Cough FINDINGS: Compared to the examination of 02/10/2022, the reticular interstitial and groundglass lower lung field opacities have nearly completely resolved with minimal residual interstitial reticular opacities in the lower lung ramachandran, most notably on the left. No new findings are identified in comparison to the previous examination. XR/XR chest 2V* [id number] IMPRESSION: Near complete resolution of lung abnormalities as above.
== END 2022-02-19 12:07 | disposition home or self-care (01) ==
LOC: RAD 12:09
PROVIDERS: Visit Provider Internal Medicine Critical Care Medicine
DX: J82.82 Acute eosinophilic pneumonia (principal)
CPT/HCPCS: 71046; 85025